=== PATIENT | male | born 1970 | race Caucasian/White ===

== ENCOUNTER 2017-05-26 10:44 | Inpatient (IN) | payer OTHER ==
[~2017-05-26] VITALS: Ht 172.7 cm; Wt 95.3 kg
[~2017-05-26 10:44] MED LIST: CIPR500T3 PO; METR1TAB66 PO; VARE1TA PO
[2017-05-26] MEDS ORDERED: ONDANSETRON 4MG/2ML VIAL (J2405) IV ONE (12:00)
[2017-05-26] MEDS ORDERED: NS 1,000 ML IV ONE (12:00)
[2017-05-26] MEDS: MORPHINE 2 MG/ML 1ML SYRINGE IV PRN ×3 (12:10→16:09)
[2017-05-26 12:24] LABS: BASO # 0.1 K/mm3 (0.0-0.2); BASO % 0.9 % (0.0-1.0); EOS # 0.3 K/mm3 (0.0-0.50); EOS % 2.7 % (0.0-3.0); LARGE UNSTAINED CELL # 0.1 K/mm3 (0.0-0.4); LARGE UNSTAINED CELL % 1.1 % (0.0-4.0); LYMPH # 0.9 K/mm3 (1.5-4.5); LYMPH % 7.4 % (24.0-44.0); MEAN CORPUSCULAR HEMOGLOBIN 32.6 pg (27.0-33.0); MEAN CORPUSCULAR HGB CONC 34.2 g/dl (32.0-36.5); MEAN CORPUSCULAR VOLUME 95.2 fl (80.0-96.0); MONO # 0.7 K/mm3 (0.0-0.8); MONO % 6.6 % (0.0-5.0); NEUTROPHILS # 8.4 K/mm3 (1.8-7.7); NEUTROPHILS % 81.3 % (36.0-66.0); PLATELET COUNT, AUTOMATED 270 k/mm3 (150-450); RED CELL DISTRIBUTION WIDTH 12.4 % (11.5-14.5); WHITE BLOOD COUNT 10.4 K/mm3 (4.0-10.0)
[2017-05-26 12:47] LABS: ALBUMIN 3.4 GM/DL (3.2-5.2); ALBUMIN/GLOBULIN RATIO 0.64 (1.00-1.93); ALKALINE PHOSPHATASE 78 U/L (45-117); ALT/SGPT 46 U/L (12-78); ANION GAP 8 MEQ/L (8-16); AST/SGOT 25 U/L (15-37); BILIRUBIN,DIRECT 0.2 MG/DL (0.0-0.2); BILIRUBIN,TOTAL 0.8 MG/DL (0.2-1.0); BLOOD UREA NITROGEN 13 MG/DL (7-18); CALCIUM LEVEL 9.5 MG/DL (8.5-10.1); CARBON DIOXIDE LEVEL 31 MEQ/L (21-32); CHLORIDE LEVEL 98 MEQ/L (98-107); CREATININE FOR GFR 0.99 MG/DL (0.70-1.30); GLOMERULAR FILTRATION RATE > 60.0 (>60); GLUCOSE, FASTING 111 MG/DL (70-105); POTASSIUM SERUM 3.8 MEQ/L (3.5-5.1); SODIUM LEVEL 137 MEQ/L (136-145); TOTAL PROTEIN 8.7 GM/DL (6.4-8.2)
[2017-05-26] MEDS ORDERED: ISOVUE-370 76% 100ML VIAL (Q9967) As Ordered ONE (13:01)
[2017-05-26] MEDS ORDERED: PIPERACILLIN/TAZOBACTAM SOD 4.5 GM in D5W MINI-BAG PLUS 50 ML IV ONE (13:45)
--- NOTE | 2017-05-26 13:47 | REP ---
Clinical: Abdominal pain with history of diverticulitis. Technique: Axial contrast enhanced images from the lung bases to the pubic symphysis using 100 ml Isovue 370 intravenous contrast material with coronal and sagittal re-formations. Comparison: 09/24/2015. Findings: Moderate amount of pneumoperitoneum is appreciated secondary to suspected ruptured sigmoid diverticulitis. Findings include mural thickening with enhancement and significant pericolonic inflammatory stranding along with scattered inflamed diverticula. Secondary inflammatory changes to the adjacent small bowel are also appreciated. Normal appendix and terminal ileum appear identified in the right lower quadrant. There is no evidence for bowel obstruction. No significant free fluid or drainable collection/abscess. Liver, spleen, pancreas, gallbladder, bilateral adrenal glands and kidneys are normal. Pelvis demonstrates normal bladder and age appropriate prostate/seminal vesicles. Reactive adenopathy secondary to the above mentioned sigmoid diverticulitis noted. No abdominal pelvic mass lesion. Abdominal aorta and vasculature appears normal. Surrounding musculoskeletal structures are intact without focal abnormality. Lung bases are clear. Visualized heart and pericardium normal. Impression: Acute perforated sigmoid diverticulitis with moderate amount of pneumoperitoneum scattered throughout the abdomen and pelvis. No associated bowel obstruction, significant free fluid or drainable collection/abscess. Secondary inflammatory changes to the adjacent small bowel noted. Signed by Lit Solano MD 05/26/2017 01:39 P
[2017-05-26] MEDS ORDERED: NS 1,000 ML IV SCH (14:30)
[2017-05-26] MEDS ORDERED: MORPHINE 2 MG/ML 1ML SYRINGE IV PRN (15:00)
[2017-05-26] MEDS ORDERED: ONDANSETRON 4MG/2ML VIAL (J2405) IV PRN (15:00)
[2017-05-26] MEDS ORDERED: ACETAMINOPHEN TAB 650MG DOSE (2X325MG) PO PRN (15:00)
[2017-05-26] MEDS ORDERED: MORPHINE 4 MG/ML 1ML SYRINGE IV PRN (15:00)
[2017-05-26] MEDS ORDERED: KETOROLAC 30 MG/ML VIAL (J1885) IV PRN (15:00)
[2017-05-26] MEDS: LR 1,000 ML IV SCH ×2 (15:28→20:25)
--- NOTE | 2017-05-26 15:52 | HPE ---
DATE OF ADMISSION: 05/26/2017 ADMISSION DIAGNOSIS: Perforated sigmoid diverticulum. HISTORY OF PRESENT ILLNESS: The patient is a pleasant 46-year-old man who presented to the emergency department at approximately 10:44 on May 26 complaining of abdominal pain. He reported that he had noted the onset of some lower abdominal fullness and discomfort on approximately Saturday, May 21. He has had an episode of diverticulitis approximately two years ago. He had a colonoscopy in September or October 2015, that identified diverticulosis involving multiple areas of the colon. He has generally done well without any recurrence of problems. He felt that he might be developing a recurrence of diverticulitis when the pain began. He initially tried to push fluids and use Tylenol as necessary. His discomfort gradually worsened over several days. He did have some nausea starting as early as May 22. He has not been eating well during this period of time. He had some dry heaves on the morning of 05/26. He noticed that the pain had become more diffuse. He reports he has had some fevers or chills overnight from 05/25 until the 05/26. He presented to the emergency department where he was evaluated. His white blood cell count was mildly elevated at 10.4 with 81% neutrophils. His chemistry profile was unremarkable. He had a CT scan of the abdomen and pelvis that revealed some limited free air primarily above the liver on the right. There was some air in the soft tissues surrounding the sigmoid colon with some obvious diverticula in the area. There was tracking of some retroperitoneal gas up to the region of the kidney and duodenum. He did not have any significant free fluid identified. Because of the evident free air consistent with a perforated sigmoid diverticulum, I was consulted. ALLERGIES: The patient denies any known drug allergies. MEDICATIONS: He has no routine medications which he takes. He uses Tylenol as needed. He did apparently have some old antibiotics in the cabinet and took some Flagyl, but this led to nausea. PAST SURGICAL HISTORY: He has had a tonsillectomy long ago. He did have a colonoscopy previously. PAST MEDICAL HISTORY: Medical history is unremarkable. He denies any heart, lung or endocrine problems. 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 He does smoke. He drinks alcohol socially. He is and accompanied to the emergency room (ER) by his spouse. FAMILY HISTORY: Really noncontributory. REVIEW OF SYSTEMS: Reveals no history of significant severe headaches, seizure or stroke. He has no history of chest pain, palpitations, shortness of breath, cough, wheezing or sputum production. He denies any endocrine problems. He has had no genitourinary issues. He has had a diagnosis of diverticulosis for several years with an episode of right-sided abdominal pain attributed to diverticulitis about two years ago. There are no bone or joint issues. He has no history of deep venous thrombosis (DVT) or pulmonary embolus. PHYSICAL EXAMINATION: Physical exam reveals a pleasant [id number] man. He is able to move with only mild obvious discomfort. He sits on the edge of the bed or stands without assistance. He is alert, oriented and cooperative. His most recent vital signs showed temperature of 98.7 with a pulse of 97, respirations of 20 and blood pressure of 137/78. Skin is warm and dry. Sclerae are anicteric. Mucous membranes are moist. Neck is supple without mass. Heart exam shows a regular rhythm without murmur. Lungs are clear to auscultation bilaterally. Abdominal exam shows a generally flat abdomen. He has bowel sounds present in all four quadrants. He has some tenderness to percussion throughout the abdomen which is fairly mild. This is most pronounced in the left lower quadrant and in the left upper quadrant. There is some tenderness to palpation as well, again primarily in the left lower quadrant and in the upper quadrants. He does not have significant rebound tenderness and there is no guarding except in the left lower quadrant. Extremities show no peripheral edema. He has palpable radial and dorsalis pedis pulses bilaterally. LABORATORY DATA: Laboratory studies show a white count of 10.4 with a hemoglobin of 16, hematocrit of 48 and platelet count of 270,000. Differential count shows 81% neutrophils, 7% lymphocytes and 7% monocytes. Chemistry profile shows a sodium of 137, potassium 3.8, chloride 98, CO2 of 31, BUN of 13, creatinine 0.99 and glucose of 111. Lactic acid is minimally elevated at 2.2. Liver function tests are normal. Total protein is 8.7 with an albumin of 3.4 and his lipase is 150. IMAGING: His CT scan imaging I reviewed personally. The radiologist report indicates acute perforated sigmoid diverticulitis with what they described as a moderate amount of pneumoperitoneum. There was no significant free fluid and no drainable abscess. On my review, he has a small amount of free air, particularly above the liver on the right with a few other small bubbles noted. He has retroperitoneal air and air in the soft tissues surrounding the sigmoid colon. He does not have any significant free fluid. IMPRESSION: Perforated sigmoid diverticulum with primarily retroperitoneal contained air with small bubbles of free air in the upper abdomen. PLAN: The patient at this point does not appear to require urgent surgical intervention. It may be that he will progress with worsening abdominal pain and developing peritonitis. I advised the patient that the usual approach for a free perforation with obvious peritonitis of the abdomen is to proceed with a laparotomy with a sigmoid colectomy and temporary end-colostomy with subsequent reconstitution of the intestinal tract in 3-6 months. I advised him that we may be able to control his current problem with antibiotics alone, without the need for surgical intervention. Certainly if his condition worsens despite the antibiotic therapy, then a surgical procedure will be required. I discussed this with the patient and his spouse at some length. He is agreeable with nonoperative management at this time and understands the risk that this will progress to a point where surgery is needed urgently. He received a dose of Zosyn in the emergency department and this will be continued. He will be kept nothing by mouth except for a few ice chips and will receive intravenous (IV) maintenance fluid. Laboratory studies will be checked again in the morning or as needed. He will be started on some subcutaneous heparin for DVT prophylaxis. GAGE
[2017-05-26 17:26] VITALS: BP 145/78
[2017-05-26] MEDS: HEPARIN SOD (PORCINE) 5000 UNITS/ML VIAL SC SCH ×2 (17:30→22:00)
[2017-05-26] MEDS: PIPERACILLIN/TAZOBACTAM SOD 3.375 GM in D5W MINI-BAG PLUS 50 ML IV SCH (20:25)
[2017-05-26 22:00] VITALS: BP 127/76
[2017-05-27] MEDS: PIPERACILLIN/TAZOBACTAM SOD 3.375 GM in D5W MINI-BAG PLUS 50 ML IV SCH ×4 (01:26→21:12)
[2017-05-27] MEDS: LR 1,000 ML IV SCH ×2 (03:50→15:02)
[2017-05-27] MEDS: HEPARIN SOD (PORCINE) 5000 UNITS/ML VIAL SC SCH ×3 (05:28→21:55)
[2017-05-27 06:00] VITALS: BP 134/81
[2017-05-27 06:02] LABS: BASO % 0.5 % (0.0-1.0); EOS # 0.3 K/mm3 (0.0-0.50); EOS % 4.2 % (0.0-3.0); LARGE UNSTAINED CELL # 0.2 K/mm3 (0.0-0.4); LARGE UNSTAINED CELL % 2.7 % (0.0-4.0); LYMPH # 0.9 K/mm3 (1.5-4.5); LYMPH % 10.9 % (24.0-44.0); MEAN CORPUSCULAR HEMOGLOBIN 32.6 pg (27.0-33.0); MEAN CORPUSCULAR HGB CONC 34.3 g/dl (32.0-36.5); MEAN CORPUSCULAR VOLUME 95.1 fl (80.0-96.0); MONO # 0.7 K/mm3 (0.0-0.8); MONO % 10.5 % (0.0-5.0); NEUTROPHILS # 4.8 K/mm3 (1.8-7.7); NEUTROPHILS % 71.2 % (36.0-66.0); PLATELET COUNT, AUTOMATED 238 k/mm3 (150-450); RED CELL DISTRIBUTION WIDTH 12.4 % (11.5-14.5); WHITE BLOOD COUNT 6.7 K/mm3 (4.0-10.0)
[2017-05-27 06:18] LABS: ANION GAP 8 MEQ/L (8-16); BLOOD UREA NITROGEN 11 MG/DL (7-18); CALCIUM LEVEL 8.7 MG/DL (8.5-10.1); CARBON DIOXIDE LEVEL 27 MEQ/L (21-32); CHLORIDE LEVEL 104 MEQ/L (98-107); CREATININE FOR GFR 0.92 MG/DL (0.70-1.30); GLOMERULAR FILTRATION RATE > 60.0 (>60); GLUCOSE, FASTING 91 MG/DL (70-105); POTASSIUM SERUM 3.8 MEQ/L (3.5-5.1); SODIUM LEVEL 139 MEQ/L (136-145)
[2017-05-27 10:00] VITALS: BP 143/81
[2017-05-27 14:00] VITALS: BP 131/60
[2017-05-27 18:00] VITALS: BP 141/83
[2017-05-27 22:00] VITALS: BP 135/92
[2017-05-28 02:00] VITALS: BP 142/85
[2017-05-28] MEDS: PIPERACILLIN/TAZOBACTAM SOD 3.375 GM in D5W MINI-BAG PLUS 50 ML IV SCH ×4 (02:22→20:35)
[2017-05-28] MEDS: HEPARIN SOD (PORCINE) 5000 UNITS/ML VIAL SC SCH ×3 (05:39→22:00)
[2017-05-28 06:00] VITALS: BP 146/88
[2017-05-28 06:53] LABS: BASO # 0.1 K/mm3 (0.0-0.2); BASO % 0.8 % (0.0-1.0); EOS # 0.2 K/mm3 (0.0-0.50); EOS % 3.1 % (0.0-3.0); LARGE UNSTAINED CELL # 0.2 K/mm3 (0.0-0.4); LARGE UNSTAINED CELL % 2.5 % (0.0-4.0); LYMPH # 1.2 K/mm3 (1.5-4.5); LYMPH % 12.9 % (24.0-44.0); MEAN CORPUSCULAR HEMOGLOBIN 32.7 pg (27.0-33.0); MEAN CORPUSCULAR HGB CONC 34.4 g/dl (32.0-36.5); MONO # 0.8 K/mm3 (0.0-0.8); MONO % 9.5 % (0.0-5.0); NEUTROPHILS # 5.6 K/mm3 (1.8-7.7); NEUTROPHILS % 71.2 % (36.0-66.0); PLATELET COUNT, AUTOMATED 281 k/mm3 (150-450); RED CELL DISTRIBUTION WIDTH 12.2 % (11.5-14.5); WHITE BLOOD COUNT 7.9 K/mm3 (4.0-10.0)
[2017-05-28 10:00] VITALS: BP 132/83
[2017-05-28] MEDS: LR 1,000 ML IV SCH (11:10)
[2017-05-28 14:00] VITALS: BP 141/83
[2017-05-28 18:00] VITALS: BP 145/84
[2017-05-28 22:00] VITALS: BP 129/81
[2017-05-29] MEDS: PIPERACILLIN/TAZOBACTAM SOD 3.375 GM in D5W MINI-BAG PLUS 50 ML IV SCH ×2 (01:32→07:53)
[2017-05-29 02:00] VITALS: BP 149/84
[2017-05-29] MEDS: HEPARIN SOD (PORCINE) 5000 UNITS/ML VIAL SC SCH (05:49)
[2017-05-29 06:00] VITALS: BP 140/89
[2017-05-29] MEDS ORDERED: CIPROFLOXACIN 500 MG TAB PO SCH (06:00)
[2017-05-29 06:50] LABS: BASO % 0.4 % (0.0-1.0); EOS # 0.3 K/mm3 (0.0-0.50); EOS % 3.1 % (0.0-3.0); LARGE UNSTAINED CELL # 0.2 K/mm3 (0.0-0.4); LARGE UNSTAINED CELL % 2.1 % (0.0-4.0); LYMPH # 1.3 K/mm3 (1.5-4.5); LYMPH % 11.8 % (24.0-44.0); MEAN CORPUSCULAR HEMOGLOBIN 31.9 pg (27.0-33.0); MEAN CORPUSCULAR HGB CONC 33.5 g/dl (32.0-36.5); MEAN CORPUSCULAR VOLUME 95.1 fl (80.0-96.0); MONO # 0.7 K/mm3 (0.0-0.8); MONO % 7.2 % (0.0-5.0); NEUTROPHILS % 75.4 % (36.0-66.0); PLATELET COUNT, AUTOMATED 299 k/mm3 (150-450); WHITE BLOOD COUNT 9.2 K/mm3 (4.0-10.0)
[2017-05-29] MEDS ORDERED: metroNIDAZOLE (FLAGYL) 500 MG TAB PO SCH (09:00)
[2017-05-29 10:00] VITALS: BP 129/79
[2017-05-29] MEDS ORDERED: FLAG500T PO (13:17)
[2017-05-29] MEDS ORDERED: CIPR-249 PO (13:17)
[2017-05-29 14:00] VITALS: BP 128/90
--- NOTE | 2017-06-14 18:55 | DSES ---
DATE OF ADMISSION: 05/26/2017 DATE OF DISCHARGE: 05/29/2017 ADMITTING DIAGNOSES: Perforated sigmoid diverticulum. HISTORY OF PRESENT ILLNESS: The patient is a pleasant 46-year-old man who presented to the emergency department at approximately 10:44 on May 26 complaining of abdominal pain. He reported that he had noted the onset of some lower abdominal fullness and discomfort on approximately Saturday, May 21. He reports that he did have an episode of diverticulitis treated medically approximately 2 years ago. He had a colonoscopy in September or October of 2015 that identified diverticulosis involving multiple areas of the colon. He has generally done well without any recurrence of problems. On May 21, he felt that he might be developing a recurrence of diverticulitis. He initially tried to push fluids and use Tylenol as necessary. His discomfort gradually worsened over several days. He did note the onset of some nausea starting as early as May 22. He has not been eating well during this period of time. He developed some dry heaves on the morning of May 26 and noticed that the pain become more diffuse. He reports that he did have some fever and chills overnight from May 25 to the . He presented to the emergency department where he was evaluated. His white blood cell count was mildly elevated at 10.4 with 81% neutrophils. His chemistry profile was unremarkable. A CT scan of the abdomen and pelvis revealed some free air as well as air in the retroperitoneal tissues and pericolic tissues of the sigmoid colon. I was consulted and he was admitted for treatment of his apparent perforated sigmoid diverticulum. HOSPITAL COURSE: The patient was admitted from the emergency department with a diagnosis of a perforated sigmoid diverticulum. He was started on piperacillin tazobactam for antibiotic coverage. He was initially kept n.p.o. except for a few ice chips. By the he felt somewhat better. He was allowed to take some clear liquids. His white blood cell count was decreased to normal. He continued with some abdominal pain and tenderness. Over the ensuing several days, his abdominal tenderness and pain diminished. His Zosyn was continued. By the , he complained only of some soreness in the left lower quadrant. Examination revealed some very mild tenderness low in the left lower quadrant and his abdomen was otherwise benign. His white blood cell count was within normal limits. He was placed on oral ciprofloxacin and Flagyl. He was on a regular diet by this point. He was discharged home on May 29, 2017. FINAL DIAGNOSIS: Perforated sigmoid diverticulum. DISPOSITION: The patient was discharged home on May 29. He was provided prescriptions for ciprofloxacin 500 mg by mouth twice daily and metronidazole 500 mg by mouth three times a day for 1 week each. He was advised against any strenuous activity. He was to continue a regular diet. He could shower as desired and follow light activity as desired. He was to remain off work for a week. He was to call the office or return to the emergency department for worsening pain, fevers or chills, or signs of worsening. He was to follow up in my office in approximately 10 days. GAGE
== END 2017-05-29 14:40 | disposition home or self-care (01) | DRG 392 ==
LOC: M ED 10:44 → M ED INP 14:56 → M MSPAV 17:11
PROVIDERS: ADMIT Surgery; ATTEND Surgery
DX: K57.20 Diverticulitis of large intestine with perforation and abscess without bleeding (principal)

== ENCOUNTER 2017-07-29 22:35 | Inpatient (IN) | payer OTHER ==
[~2017-07-29] VITALS: Ht 172.7 cm; Wt 84.1 kg
[~2017-07-29 22:35] MED LIST changes: +CIPR-249 PO; +FLAG500T PO
[2017-07-30] VITALS (9 sets, daily range): BP systolic 102–142; BP diastolic 69–92; O2SAT 98
[2017-07-30 01:15] LABS: BASO # 0.1 K/mm3 (0.0-0.2); BASO % 0.6 % (0.0-1.0); EOS # 0.4 K/mm3 (0.0-0.50); EOS % 2.6 % (0.0-3.0); LARGE UNSTAINED CELL # 0.2 K/mm3 (0.0-0.4); LYMPH # 1.5 K/mm3 (1.5-4.5); MEAN CORPUSCULAR HEMOGLOBIN 32.8 pg (27.0-33.0); MEAN CORPUSCULAR HGB CONC 35.4 g/dl (32.0-36.5); MEAN CORPUSCULAR VOLUME 92.7 fl (80.0-96.0); MONO # 0.6 K/mm3 (0.0-0.8); MONO % 4.1 % (0.0-5.0); NEUTROPHILS # 12.4 K/mm3 (1.8-7.7); NEUTROPHILS % 81.9 % (36.0-66.0); PLATELET COUNT, AUTOMATED 292 k/mm3 (150-450); RED CELL DISTRIBUTION WIDTH 12.7 % (11.5-14.5); WHITE BLOOD COUNT 15.2 K/mm3 (4.0-10.0)
[2017-07-30] MEDS ORDERED: metroNIDAZOLE 750 MG in APPROPRIATE DILUENT 1 EA IV ONE (01:30)
[2017-07-30] MEDS ORDERED: NS 1,000 ML IV ONE ×2 (01:30→03:30)
[2017-07-30] MEDS ORDERED: HYDROmorphone HCL 1 MG/ML SYRINGE (J1170) IV ONE (01:30)
[2017-07-30] MEDS ORDERED: ONDANSETRON 4MG/2ML VIAL (J2405) IV ONE (01:30)
[2017-07-30 01:34] LABS: ALBUMIN 4.2 GM/DL (3.2-5.2); ALBUMIN/GLOBULIN RATIO 1.17 (1.00-1.93); ALKALINE PHOSPHATASE 75 U/L (45-117); ALT/SGPT 39 U/L (12-78); ANION GAP 6 MEQ/L (8-16); AST/SGOT 14 U/L (15-37); BILIRUBIN,DIRECT 0.1 MG/DL (0.0-0.2); BILIRUBIN,TOTAL 0.4 MG/DL (0.2-1.0); BLOOD UREA NITROGEN 11 MG/DL (7-18); CALCIUM LEVEL 9.3 MG/DL (8.5-10.1); CARBON DIOXIDE LEVEL 30 MEQ/L (21-32); CHLORIDE LEVEL 102 MEQ/L (98-107); CREATININE FOR GFR 1.08 MG/DL (0.70-1.30); GLOMERULAR FILTRATION RATE > 60.0 (>60); GLUCOSE, FASTING 93 MG/DL (70-105); POTASSIUM SERUM 4.2 MEQ/L (3.5-5.1); SODIUM LEVEL 138 MEQ/L (136-145); TOTAL PROTEIN 7.8 GM/DL (6.4-8.2)
[2017-07-30] MEDS ORDERED: ISOVUE-370 76% 100ML VIAL (Q9967) As Ordered ONE (02:00)
--- NOTE | 2017-07-30 02:40 | REPUSA ---
CLINICAL HISTORY: Abdominal pain. TECHNIQUE: Multiple axial, sagittal and coronal CT images were obtained through the abdomen and pelvi s after administration of intravenous contrast material. COMMENTS: Diffuse thickening of the proximal small bowel loops. Associated abnormal enhancement, surrounding fat stranding with pneumatosis intestinalis. Secondary small bowel perforation and pneumoperitoneum. No major arterial occlusion is identified in the superior mesenteric, celiac and inferior mesenteric arteries. Small amount of free pelvic fluid. The liver is of uniform attenuation without mass or defect. There is no intra or extrahepatic biliary ductal dilatation. The spleen is normal. The gallbladder is within normal limits. The pancreas is of normal contour and attenuation characteristics. There is no evidence of adrenal mass. Both kidneys demonstrate prompt and equal nephrograms. The kidneys are normal in size, shape and conf iguration. There is no evidence of renal or ureteral mass. No renal or ureteral calculi are identifie d. There is no hydroureter or hydronephrosis. No evidence for appendicitis. No evidence for small or large bowel obstruction. There is no evidence of intrinsic or extrinsic bladder mass. Images of the lung bases show no evidence of pleural or parenchymal mass. There are no pleural effusi ons. The bony structures are free of lytic or blastic lesions. Multilevel degenerative changes are seen in volving the thoracolumbar spine. Scattered calcifications are seen involving the aorta and major branches compatible with atherosclero sis. IMPRESSION: Diffuse thickening of the proximal small bowel loops. Severe infectious/inflammatory versus ischemic bowel pathology. Associated abnormal enhancement, surrounding fat stranding with pneumatosis intestinalis. Secondary small bowel perforation and pneumoperitoneum. No major arterial occlusion is identified in the superior mesenteric, celiac and inferior mesenteric arteries. Small amount of free pelvic fluid. Thank you for your kind referral of this patient.
[2017-07-30] MEDS ORDERED: SUCCINYLCHOLINE 100 MG/5 ML SYRINGE (J0330) As Ordered ONE (04:10)
[2017-07-30] MEDS ORDERED: PROPOFOL 200 MG/20 ML VIAL As Ordered ONE ×2 (04:10→07:46)
[2017-07-30] MEDS ORDERED: fentaNYL 100 MCG/2 ML INJECTION (J3010) As Ordered ONE ×4 (04:10→08:43)
[2017-07-30] MEDS ORDERED: ROCURONIUM BROMIDE 50 MG/5 ML VIAL/SYRINGE As Ordered ONE ×4 (04:10→07:38)
[2017-07-30] MEDS ORDERED: LIDOCAINE 2% INJ 100 MG/5 ML SDV (FOR ANES.) As Ordered ONE ×2 (04:10→09:37)
[2017-07-30] MEDS ORDERED: MIDAZOLAM INJ 2 MG/2 ML VIAL (J2250) As Ordered ONE (04:11)
[2017-07-30] MEDS ORDERED: TYLE500T78 PO (04:17)
[2017-07-30] MEDS ORDERED: TUMS500C PO (04:17)
[2017-07-30] MEDS ORDERED: BUPIVACAINE HCL 0.25% 30 ML VIAL As Ordered ONE (05:13)
[2017-07-30] MEDS ORDERED: cefoTEtan DISODIUM 2 GM in D5W MINI-BAG PLUS 100 ML IV ONE (06:00)
[2017-07-30] MEDS ORDERED: MORPHINE 10 MG/ML 1ML VIAL As Ordered ONE ×3 (06:53→09:23)
[2017-07-30] MEDS ORDERED: ONDANSETRON 4MG/2ML VIAL (J2405) As Ordered ONE (07:02)
[2017-07-30] MEDS ORDERED: GLYCOPYRROLATE INJ 0.2 MG/ML 2 ML VIAL As Ordered ONE (07:38)
[2017-07-30] MEDS ORDERED: NEOSTIGMINE 1MG/ML 5 ML SYRINGE (J2710) As Ordered ONE (07:38)
[2017-07-30] MEDS ORDERED: KETOROLAC 60 MG/2 ML VIAL (J1885) As Ordered ONE (07:38)
[2017-07-30] MEDS ORDERED: HYDROmorphone HCL 2 MG/ML 1ML VIAL (J1170) As Ordered ONE (08:12)
[2017-07-30] MEDS: fentaNYL 100 MCG/2 ML INJECTION (J3010) IV PRN ×4 (08:44→09:00)
[2017-07-30] MEDS ORDERED: MORPHINE 4 MG/ML 1ML SYRINGE IV PRN (08:45)
[2017-07-30] MEDS ORDERED: ACETAMINOPHEN TAB 650MG DOSE (2X325MG) PO PRN (08:45)
[2017-07-30] MEDS ORDERED: ONDANSETRON 4MG/2ML VIAL (J2405) IV PRN ×2 (08:45→09:00)
[2017-07-30] MEDS ORDERED: LR 1,000 ML IV SCH (09:00)
[2017-07-30] MEDS: MORPHINE 2 MG/ML 1ML SYRINGE IV PRN ×5 (09:04→09:24)
[2017-07-30] MEDS ORDERED: HYDROmorphone HCL 1 MG/ML SYRINGE (J1170) As Ordered ONE ×2 (09:41→10:05)
[2017-07-30] MEDS: HYDROmorphone HCL 1 MG/ML SYRINGE (J1170) IV PRN ×2 (09:42→09:47)
[2017-07-30] MEDS: LR 1,000 ML IV SCH ×3 (10:48→20:23)
[2017-07-30] MEDS: PANTOPRAZOLE 40MG INJ (PROTONIX) (C9113) IV SCH (11:24)
[2017-07-30] MEDS: SENOKOT S TAB PO SCH ×2 (11:24→19:48)
[2017-07-30] MEDS: ERTAPENEM SODIUM 1 GM in NS MINI-BAG PLUS 50 ML IV SCH (11:24)
[2017-07-30] MEDS: NORCO, ANEXSIA 5/325MG TABLET (HYDROcodone/ACETAMINOPHEN) PO PRN ×2 (11:25→19:49)
[2017-07-30] MEDS: HEPARIN SOD (PORCINE) 5000 UNITS/ML VIAL SC SCH ×2 (14:12→20:23)
[2017-07-30] MEDS: KETOROLAC 30 MG/ML VIAL (J1885) IV PRN (16:39)
--- NOTE | 2017-07-30 17:07 | HPE ---
DATE OF ADMISSION: 07/30/2017 CHIEF COMPLAINT: Abdominal pain. HISTORY OF PRESENT ILLNESS: The patient is a 46-year-old male who was recently in the hospital about a month ago with Dr. Prado, admitted for perforated diverticulitis. He was discharged home; however, for the past month he has had this persistent lower abdominal pain. Last evening he went out, had a few drinks, went home, and went to bed. As soon as he got home the pain got worse suddenly with most of the pain in epigastric area at first, and then now it is more toward the lower abdomen. This pain has been increasing in intensity, so he came into the emergency room for evaluation. In the emergency room (ER) he was afebrile. Vital signs were all stable. He had a slightly elevated white count at 15.2 with an abnormal of the CT scan that showed that there was likely a perforated small bowel with some pneumatosis intestinalis and free air inside the abdomen. Because of this I was called to evaluate. On exam the patient is extremely tender. He denies any fevers or chills. No nausea, vomiting, or diarrhea. No change in bowel movements, just this sudden increase in the pain. He does have history of acid reflux and heartburn, and he was out drinking a lot of alcohol last evening. No other significant risk factors for any type of peptic ulcer disease and no previous abdominal surgeries. I did speak with the radiologist on the phone, who reviewed the film with me directly and believes that the perforation is likely in the proximal ileum and down toward the pelvis with some slightly dilated loops of bowel in that vicinity. No signs of any injury in the proximal small bowel. PAST MEDICAL HISTORY: 1. Gastroesophageal reflux disease (GERD). 2. Tobacco usage. PAST SURGICAL HISTORY: Tonsils. ALLERGIES: None. HOME MEDICATIONS: Tums as needed and Tylenol as needed. SOCIAL HISTORY: Smokes about a pack a day. Drinks socially. Denies any drug abuse. FAMILY HISTORY: Noncontributory. REVIEW OF SYSTEMS: Pertinent positives and negatives as stated in the history of present illness (HPI). PHYSICAL EXAMINATION: GENERAL: Patient is alert and oriented times three in no acute distress. VITAL SIGNS: Temperature 97.8, pulse 95, respirations 16, blood pressure 153/91, pulse oximetry 96% on room air. HEENT: Pupils equally round and react to light and accommodation. HEART: S1, S2, regular rate and rhythm. LUNGS: Clear to auscultation bilaterally. ABDOMEN: Soft, tender palpation diffusely, slight rebound tenderness in left lower quadrant associated with guarding. EXTREMITIES: No clubbing, cyanosis, or edema. LABORATORY DATA: White count 15.2, hemoglobin 18.2, platelets 292. Sodium 138, potassium 4.2, creatinine 1.08. IMAGING STUDIES: CT abdomen and pelvis shows diffuse thickening of proximal small bowel loops, severe infectious, inflammatory versus ischemic bowel pathology, associated abnormal enhancement surrounding fat stranding with pneumatosis intestinalis secondary to small-bowel perforation and pneumoperitoneum. No major arterial occlusion identified in the superior mesenteric artery (SMA), celiac, and inferior mesenteric arteries (IMAs). Small amount of free pelvic fluid. ASSESSMENT AND PLAN: The patient 46-year-old male with history of diverticulitis that was perforated about a month ago, now presents with increasing abdominal pain and an inflammatory process with likely a perforated small bowel in the left lower quadrant. This likely is associated with the diverticulitis. Recommendation at this time is to proceed with diagnostic laparoscopy, possible laparotomy with resection of small bowel, possible large bowel. Risks and benefits of procedure were discussed in detail with the patient. Informed consent was obtained, and patient was brought back to the operating room emergently. Postoperatively he will be kept in the hospital until he is tolerating diet and having normal bowel movements, and he will be kept on intravenous (IV) fluids and antibiotics and during his stay.
[2017-07-31] VITALS (7 sets, daily range): BP systolic 109–167; BP diastolic 60–91; O2SAT 97
[2017-07-31] MEDS: NORCO, ANEXSIA 5/325MG TABLET (HYDROcodone/ACETAMINOPHEN) PO PRN ×2 (02:24→19:29)
[2017-07-31] MEDS: LR 1,000 ML IV SCH ×3 (04:39→19:29)
[2017-07-31] MEDS: HEPARIN SOD (PORCINE) 5000 UNITS/ML VIAL SC SCH ×4 (05:00→22:00)
[2017-07-31] MEDS: KETOROLAC 30 MG/ML VIAL (J1885) IV PRN ×2 (06:36→14:07)
[2017-07-31 07:05] LABS: MEAN CORPUSCULAR HEMOGLOBIN 31.9 pg (27.0-33.0); MEAN CORPUSCULAR HGB CONC 34.7 g/dl (32.0-36.5); RED CELL DISTRIBUTION WIDTH 12.7 % (11.5-14.5); WHITE BLOOD COUNT 10.8 K/mm3 (4.0-10.0)
[2017-07-31 07:32] LABS: ANION GAP 4 MEQ/L (8-16); BLOOD UREA NITROGEN 10 MG/DL (7-18); CALCIUM LEVEL 7.9 MG/DL (8.5-10.1); CARBON DIOXIDE LEVEL 34 MEQ/L (21-32); CHLORIDE LEVEL 103 MEQ/L (98-107); CREATININE FOR GFR 0.86 MG/DL (0.70-1.30); GLOMERULAR FILTRATION RATE > 60.0 (>60); GLUCOSE, FASTING 108 MG/DL (70-105); MAGNESIUM LEVEL 1.9 MG/DL (1.8-2.4); POTASSIUM SERUM 4.3 MEQ/L (3.5-5.1); SODIUM LEVEL 141 MEQ/L (136-145)
--- NOTE | 2017-07-31 07:37 | RO ---
DATE OF PROCEDURE: 07/30/2017 PREOPERATIVE DIAGNOSIS: Perforated small bowel. 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 PROCEDURE: Diagnostic converted to exploratory laparotomy with takedown of enterocolonic fistula with small bowel resection and primary anastomosis, followed by sigmoid resection with distal Anup's pouch and colostomy. SURGEON: Mervin Ruiz DO SUBSTATION ENGINEER: Joby Art MD ANESTHESIA: General: ESTIMATED BLOOD LOSS (EBL): 100. COMPLICATIONS: None. INDICATION FOR PROCEDURE: The patient is a 46-year-old male who presents with increasing abdominal pain and CT findings associated with a perforated bowel and free air inside the abdomen. Recommendation to proceed with diagnostic possible open exploratory laparotomy. Risks, benefits of procedure not limited but including bleeding, infection, hernia formation, damage to surrounding structures, anastomotic leak and need for further surgery were discussed in detail with the patient and the patient's . Informed consent was obtained and procedure was planned. DESCRIPTION OF PROCEDURE: Patient brought back to operating room #3. After sufficient sedation, the abdomen was sterilely prepped and draped. Nasogastric tube was placed as well as a Parisi. Time-out was done to firm proper patient, proper procedure. Following that a 5 mm incision made in the left upper quadrant. Veress needle was inserted and the abdomen was insufflated with 50 mmHg. The Veress needle was removed and a 5 mm Optiview port was used to gain access to the abdomen. Once the abdomen was entered, another 5 mm port was placed infraumbilically in the midline, followed by another 5 mm port in the right lower quadrant. The omentum was elevated up towards the transverse colon. It was densely adhered in the left lower quadrant and was unable to be mobilized very easily. Because of this the plan was to open. Following that an infraumbilical incision was created using a scalpel. Incision was carried down through the fascia inside the abdomen using electrocautery. Once the abdomen was entered, the omentum was able to be teased away from the inflammatory process of left lower quadrant and mobilized up towards the superior peritoneal cavity. A large mass of small bowel in the left lower quadrant was densely adhered to the sigmoid colon. This was able to be easily teased apart using blunt dissection. Upon doing so it revealed that there was an enterocolonic fistula with the opening into the sigmoid colon as well as into a loop of small bowel. The small bowel was then mobilized away. The sigmoid colon was mobilized laterally and medially using electrocautery. All the adhesions were taken down off the lateral abdominal wall. Peritoneal reflections were taken down using electrocautery until the bowel was easily mobilized. Once immobilization was complete, the rectosigmoid junction was stapled using a contour stapler. The mesentery of the sigmoid colon was then taken down using the LigaSure Max until enough mobilization was achieved to be able to bring out a colostomy. Once that was completed, the small bowel resection was done. A section of small bowel, approximately 25 cm in length, had two small perforations in the it. The bowel was brought back together in a [id number]-si-ibsh anastomosis using a MIGUELIAN 100 stapler. Once that was completed, the mesentery between these two points was taken down using the LigaSure. Once the area was all removed, the small bowel mesentery was reapproximated using a running #0 Vicryl suture. The staple lines of the anastomosis were oversewn with interrupted Lembert sutures covered by a layer of Tisseel. This small bowel was then placed back inside of the pelvis and a 19-Uzbek Javier drain was placed next to it and brought out through a right lower quadrant port site. Circular incision made in the left midabdomen. The skin, subcutaneous tissue was excised in this area. Cruciate incision was then made in the anterior and posterior layers of the fascia and the muscle fibers in the middle were just bluntly in between. The sigmoid colon was brought out through this incision out through the abdominal wall. It was then left in place. The abdomen was then washed out using warm saline. Midline incision was closed with two looped running PDS sutures tied them. Skin was approximated using hodan. Drains, stitch was placed. The large intestine was transected about 2 cm above the skin level. Melissa colostomy was then created using #3-0 Vicryl sutures. Once this was completed, the anastomosis was done. The abdomen was washed and dried. 4 x 4's and tape and an ostomy appliance were placed, thus ending procedure. GAGE
[2017-07-31] MEDS: SENOKOT S TAB PO SCH ×2 (09:45→19:29)
[2017-07-31] MEDS: PANTOPRAZOLE 40MG INJ (PROTONIX) (C9113) IV SCH (09:45)
[2017-07-31] MEDS: ERTAPENEM SODIUM 1 GM in NS MINI-BAG PLUS 50 ML IV SCH (09:45)
[2017-08-01] MEDS: LR 1,000 ML IV SCH ×2 (00:39→07:38)
[2017-08-01] MEDS: HEPARIN SOD (PORCINE) 5000 UNITS/ML VIAL SC SCH ×3 (05:09→20:13)
[2017-08-01 06:00] VITALS: BP 155/88
[2017-08-01 07:09] LABS: MEAN CORPUSCULAR HEMOGLOBIN 31.4 pg (27.0-33.0); MEAN CORPUSCULAR HGB CONC 33.9 g/dl (32.0-36.5); MEAN CORPUSCULAR VOLUME 92.7 fl (80.0-96.0); RED CELL DISTRIBUTION WIDTH 12.7 % (11.5-14.5); WHITE BLOOD COUNT 10.7 K/mm3 (4.0-10.0)
[2017-08-01 07:30] LABS: ANION GAP 5 MEQ/L (8-16); BLOOD UREA NITROGEN 5 MG/DL (7-18); CALCIUM LEVEL 8.8 MG/DL (8.5-10.1); CARBON DIOXIDE LEVEL 31 MEQ/L (21-32); CHLORIDE LEVEL 104 MEQ/L (98-107); CREATININE FOR GFR 0.68 MG/DL (0.70-1.30); GLOMERULAR FILTRATION RATE > 60.0 (>60); GLUCOSE, FASTING 99 MG/DL (70-105); MAGNESIUM LEVEL 1.9 MG/DL (1.8-2.4); POTASSIUM SERUM 3.9 MEQ/L (3.5-5.1); SODIUM LEVEL 140 MEQ/L (136-145)
[2017-08-01] MEDS: PANTOPRAZOLE 40MG INJ (PROTONIX) (C9113) IV SCH (08:54)
[2017-08-01] MEDS: SENOKOT S TAB PO SCH ×2 (08:54→20:09)
[2017-08-01] MEDS: ERTAPENEM SODIUM 1 GM in NS MINI-BAG PLUS 50 ML IV SCH (08:55)
[2017-08-01] MEDS: NORCO, ANEXSIA 5/325MG TABLET (HYDROcodone/ACETAMINOPHEN) PO PRN ×2 (08:55→20:10)
[2017-08-01] MEDS ORDERED: diphenhydrAMINE INJ 50MG/ML VIAL (J1200) IV PRN (10:45)
[2017-08-01] MEDS: KCL 10MEQ IN D5/0.45NS 1000ML 1,000 ML IV SCH (12:21)
[2017-08-01 14:00] VITALS: BP 19/65
[2017-08-01] MEDS: KETOROLAC 30 MG/ML VIAL (J1885) IV PRN (20:12)
[2017-08-01 21:00] VITALS: O2SAT 97
[2017-08-01 22:00] VITALS: BP 147/87
[2017-08-02] MEDS: KCL 10MEQ IN D5/0.45NS 1000ML 1,000 ML IV SCH (00:48)
[2017-08-02] MEDS: HEPARIN SOD (PORCINE) 5000 UNITS/ML VIAL SC SCH ×4 (05:01→21:59)
[2017-08-02 06:00] VITALS: BP 145/63
[2017-08-02 07:29] LABS: MEAN CORPUSCULAR HEMOGLOBIN 31.8 pg (27.0-33.0); MEAN CORPUSCULAR HGB CONC 34.2 g/dl (32.0-36.5); MEAN CORPUSCULAR VOLUME 92.9 fl (80.0-96.0); RED CELL DISTRIBUTION WIDTH 12.6 % (11.5-14.5); WHITE BLOOD COUNT 6.4 K/mm3 (4.0-10.0)
[2017-08-02 07:44] LABS: ANION GAP 2 MEQ/L (8-16); BLOOD UREA NITROGEN 5 MG/DL (7-18); CALCIUM LEVEL 8.4 MG/DL (8.5-10.1); CARBON DIOXIDE LEVEL 31 MEQ/L (21-32); CHLORIDE LEVEL 104 MEQ/L (98-107); CREATININE FOR GFR 0.75 MG/DL (0.70-1.30); GLOMERULAR FILTRATION RATE > 60.0 (>60); GLUCOSE, FASTING 100 MG/DL (70-105); POTASSIUM SERUM 3.9 MEQ/L (3.5-5.1); SODIUM LEVEL 137 MEQ/L (136-145)
[2017-08-02] MEDS: SENOKOT S TAB PO SCH ×2 (09:01→21:56)
[2017-08-02] MEDS: ERTAPENEM SODIUM 1 GM in NS MINI-BAG PLUS 50 ML IV SCH (09:01)
[2017-08-02] MEDS: PANTOPRAZOLE 40MG INJ (PROTONIX) (C9113) IV SCH (09:01)
[2017-08-02] MEDS: KETOROLAC 30 MG/ML VIAL (J1885) IV PRN (09:50)
[2017-08-02 14:00] VITALS: BP 138/85
[2017-08-02] MEDS: NORCO, ANEXSIA 5/325MG TABLET (HYDROcodone/ACETAMINOPHEN) PO PRN (21:55)
[2017-08-02 22:00] VITALS: BP 144/89
[2017-08-03 06:00] VITALS: BP 136/83
[2017-08-03] MEDS: HEPARIN SOD (PORCINE) 5000 UNITS/ML VIAL SC SCH (06:00)
[2017-08-03 07:24] LABS: ANION GAP 9 MEQ/L (8-16); BLOOD UREA NITROGEN 7 MG/DL (7-18); CALCIUM LEVEL 8.2 MG/DL (8.5-10.1); CARBON DIOXIDE LEVEL 27 MEQ/L (21-32); CHLORIDE LEVEL 105 MEQ/L (98-107); CREATININE FOR GFR 0.75 MG/DL (0.70-1.30); GLOMERULAR FILTRATION RATE > 60.0 (>60); GLUCOSE, FASTING 91 MG/DL (70-105); SODIUM LEVEL 141 MEQ/L (136-145)
[2017-08-03 07:30] LABS: MEAN CORPUSCULAR HEMOGLOBIN 31.7 pg (27.0-33.0); MEAN CORPUSCULAR HGB CONC 34.4 g/dl (32.0-36.5); MEAN CORPUSCULAR VOLUME 92.1 fl (80.0-96.0); RED CELL DISTRIBUTION WIDTH 12.7 % (11.5-14.5); WHITE BLOOD COUNT 6.6 K/mm3 (4.0-10.0)
[2017-08-03] MEDS: SENOKOT S TAB PO SCH (08:10)
[2017-08-03] MEDS: PANTOPRAZOLE 40MG INJ (PROTONIX) (C9113) IV SCH (08:10)
[2017-08-03] MEDS: NORCO, ANEXSIA 5/325MG TABLET (HYDROcodone/ACETAMINOPHEN) PO PRN (08:11)
[2017-08-03] MEDS ORDERED: FLAG500T PO (10:37)
[2017-08-03] MEDS ORDERED: CIPR500T3 PO (10:37)
[2017-08-03] MEDS ORDERED: NORCOTAB PO (10:37)
--- NOTE | 2017-08-06 15:08 | DSES ---
DATE OF ADMISSION: 07/30/2017 DATE OF DISCHARGE: 08/03/2017 ADMISSION DIAGNOSIS: Perforated viscus. 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 HOSPITAL COURSE: Patient is a 46-year-old male who presented to emergency room on the with complaints of abdominal pain. He had CAT scan done, which showed free air in the abdomen, as well as a lot of inflammation and some loops of the small bowel suspicious for perforated bowel. Due to recent history of perforated diverticulitis about a month prior to that, plan was to take him to the operating room for exploration. He was brought up to the operating room and diagnostic laparoscopy was performed as due to the suspicion for a small bowel perforation. However, once inside the small bowel was all adhered to the sigmoid colon so the plan was to open. This was then converted over to exploratory laparotomy. He had multiple loops of small bowel adhered to the sigmoid colon, one of which had fistulized to the sigmoid colon and also have free perforation inside the abdomen. He underwent a small bowel resection, as well as a sigmoid resection with Anup's pouch and end colostomy. He tolerated the procedure well and was sent back to the floor in stable condition. Postoperatively, his pain was improved. His nasogastric tube was removed along with a Parisi. On postop day #1, he was ambulating well, using his incentive spirometer had good urine output and his labs continued to improve. He then was slowly started on diet and by the morning of the , he had large volumes out of his ostomy. Javier drain was serosanguineous so the drain was removed and he was discharged home. PLAN: Followup with me in the office in 2 weeks. Plan on followup visit 3 months after that to schedule colostomy reversal. Call the office with any questions. No lifting more than 20 pounds.
== END 2017-08-03 11:55 | disposition home or self-care (01) | DRG 329 ==
LOC: M ED 22:35 → M SDC 07-30 04:25 → M MS5PR 07-30 08:39
PROVIDERS: ADMIT Surgery; ATTEND Surgery
PROC: 0DBN0ZZ Excision of Sigmoid Colon, Open Approach (ICD-10-PCS; 2017-07-30)
PROC: 0DB80ZZ Excision of Small Intestine, Open Approach (ICD-10-PCS; 2017-07-30)
PROC: 0DNE0ZZ Release Large Intestine, Open Approach (ICD-10-PCS; 2017-07-30)
PROC: 0DN80ZZ Release Small Intestine, Open Approach (ICD-10-PCS; 2017-07-30)
PROC: 0D1N0Z4 Bypass Sigmoid Colon to Cutaneous, Open Approach (ICD-10-PCS; principal; 2017-07-30 03:42)
DX: K63.2 Fistula of intestine (principal); K63.1 Perforation of intestine (nontraumatic); K21.9 Gastro-esophageal reflux disease without esophagitis; F17.210 Nicotine dependence, cigarettes, uncomplicated; Z53.31 Laparoscopic surgical procedure converted to open procedure

== ENCOUNTER 2017-08-19 01:37 | Inpatient (IN) | payer OTHER ==
[~2017-08-19] VITALS: Ht 172.7 cm; Wt 77.4 kg
[~2017-08-19 01:37] MED LIST changes: +NORCOTAB PO; +TUMS500C PO; +TYLE500T78 PO
[2017-08-19 02:12] LABS: BASO # 0.1 10^3/uL (0.0-0.2); BASO % 0.6 % (0.0-1.0); EOS # 0.1 10^3/uL (0.0-0.50); IMMATURE GRANULOCYTE % 0.6 % (0-0); LYMPH # 2.4 10^3/uL (1.5-4.5); MEAN CORPUSCULAR HEMOGLOBIN 30.7 pg (27.0-33.0); MEAN CORPUSCULAR HGB CONC 33.8 g/dl (32.0-36.5); MEAN CORPUSCULAR VOLUME 90.6 fl (80.0-96.0); MONO # 1.5 10^3/uL (0.0-0.8); MONO % 10.7 % (0.0-5.0); NEUTROPHILS # 9.4 10^3/uL (1.8-7.7); NEUTROPHILS % 69.1 % (36.0-66.0); PLATELET COUNT, AUTOMATED 343 10^3/uL (150-450); WHITE BLOOD COUNT 13.5 10^3/uL (4.0-10.0)
[2017-08-19 02:13] LABS: VENOUS BASE EXCESS -0.8 (-2.0-2.0); VENOUS O2 SATURATION 38.9 % (60.0-80.0); VENOUS PARTIAL PRESSURE CO2 63.1 mmHg (38.0-50.0); VENOUS PARTIAL PRESSURE O2 25.4 mmHg (30.0-50.0); VENOUS STANDARD HCO3 22.3 MEQ/L; VENOUS TOTAL CO2 29.9 MEQ/L (24.0-28.0)
[2017-08-19] MEDS: MORPHINE 4 MG/ML 1ML SYRINGE IV PRN ×2 (02:13→03:11)
[2017-08-19] MEDS ORDERED: ONDANSETRON 4MG/2ML VIAL (J2405) IV ONE (02:15)
[2017-08-19 02:31] LABS: ALBUMIN 3.8 GM/DL (3.2-5.2); ALBUMIN/GLOBULIN RATIO 0.88 (1.00-1.93); ALKALINE PHOSPHATASE 66 U/L (45-117); ALT/SGPT 32 U/L (12-78); ANION GAP 5 MEQ/L (8-16); AST/SGOT 7 U/L (15-37); BILIRUBIN,DIRECT 0.2 MG/DL (0.0-0.2); BILIRUBIN,TOTAL 0.9 MG/DL (0.2-1.0); BLOOD UREA NITROGEN 13 MG/DL (7-18); CALCIUM LEVEL 9.3 MG/DL (8.5-10.1); CARBON DIOXIDE LEVEL 32 MEQ/L (21-32); CHLORIDE LEVEL 100 MEQ/L (98-107); CREATININE FOR GFR 1.05 MG/DL (0.70-1.30); GLOMERULAR FILTRATION RATE > 60.0 (>60); GLUCOSE, FASTING 121 MG/DL (70-105); POTASSIUM SERUM 3.9 MEQ/L (3.5-5.1); SODIUM LEVEL 137 MEQ/L (136-145); TOTAL PROTEIN 8.1 GM/DL (6.4-8.2)
[2017-08-19] MEDS ORDERED: ISOVUE-370 76% 100ML VIAL (Q9967) As Ordered ONE (02:48)
--- NOTE | 2017-08-19 03:30 | REPUSA ---
CLINICAL HISTORY: Abdominal pain. TECHNIQUE: Multiple axial, sagittal and coronal CT images were obtained through the abdomen and pelvi s after administration of intravenous contrast material. COMMENTS: Comparison is made to the prior exam performed on 07/28/2017. Mild proximal small bowel lower thickening. Surgical changes of the bowels. Unremarkable left lower quadrant colostomy. Mild thickening of the under distended rectosigmoid colon. Mild prostatomegaly. Fat containing left inguinal hernia without incarceration. The liver is mildly enlarged decreased attenuation without mass or defect. There is no intra or extra hepatic biliary ductal dilatation. The spleen is normal. The gallbladder is within normal limits. The pancreas is of normal contour and attenuation characteristics. There is no evidence of adrenal mass. Both kidneys demonstrate prompt and equal nephrograms. The kidneys are normal in size, shape and conf iguration. There is no evidence of renal or ureteral mass. No renal or ureteral calculi are identifie d. There is no hydroureter or hydronephrosis. No evidence for small or large bowel obstruction. There is no evidence of abdominal ascites or lympha denopathy. There is no evidence of intrinsic or extrinsic bladder mass. There is no pelvic ascites or lymphadeno yecenia. Images of the lung bases show no evidence of pleural or parenchymal mass. There are no pleural effusi ons. Ground glass densities in the right lower lobe. The bony structures are free of lytic or blastic lesions. Calcified splenic granulomas. IMPRESSION: Groundglass densities in the right lower lobe. Pneumonitis is suspected. Surgical changes of the small bowels. Unremarkable left lower quadrant colostomy. Mild prostatomegaly. Fat containing left inguinal hernia without incarceration. Apparent thickening of the under distended rectosigmoid colon. Thank you for your kind referral of this patient.
--- NOTE | 2017-08-19 03:40 | REPUSA ---
CLINICAL HISTORY: Chest pain, exclude PE. TECHNIQUE: Multiple incremental axial, coronal and oblique images are obtained from the thoracic inle t to the upper abdomen. Intravenous contrast material was administered as per pulmonary embolism prot ocol. COMMENTS: Bilateral lower lobe segmental branches pulmonary emboli. Findings prominent in the right lower lobe. Associated subpleural airspace disease suggestive of developing pulmonary infarctions. There is bilateral peribronchial interstitial thickening suggestive of bronchitis. There is excellent opacification of the remaining pulmonary arterial system without evidence for cent ral pulmonary embolism. Aorta is of normal caliber without evidence for dissection or aneurysm. There is no evidence of pleural or parenchymal mass. There are no pleural effusions. There is no evid ence of hilar or mediastinal lymphadenopathy. The heart and great vessels are within normal limits. Images of the upper abdomen demonstrate no evidence of adrenal mass. The bony structures are free of lytic or blastic lesions. IMPRESSION: Bilateral lower lobe segmental branches pulmonary emboli. Associated multifocal subpleural airspace disease more prominent in the right lower lobe. Findings ar e suggestive of developing pulmonary infarction. Thank you for your kind referral of this patient.
[2017-08-19 03:42] LABS: ABG HCO3 25.8 MEQ/L (22.0-26.0); ABG PARTIAL PRESSURE CO2 41.4 mmHg (35.0-45.0); ABG PARTIAL PRESSURE O2 78.2 mmHg (75.0-100.0); ABG STANDARD HCO3 25.4 MEQ/L (22.0-26.0); ABG pH (ARTERIAL) 7.412 UNITS (7.350-7.450)
[2017-08-19] MEDS ORDERED: ACETAMINOPHEN 500 MG TAB PO PRN (04:45)
[2017-08-19] MEDS ORDERED: CALCIUM CARBONATE 500 MG CHEW U/D PO PRN (04:45)
[2017-08-19] MEDS ORDERED: ONDANSETRON 4MG/2ML VIAL (J2405) IV PRN (04:45)
--- NOTE | 2017-08-19 05:20 | REPUSA ---
CLINICAL HISTORY: Edema. COMMENTS: Real time sonography with duplex doppler of the extremities bilaterally was performed with attention to the major deep venous structures. Evaluation reveals the common femoral, superficial femoral and popliteal veins bilaterally to be comp letely compressible without intraluminal thrombus. There is normal spontaneous phasic flow and augmen tation in all deep veins. The greater saphenous/common femoral vein junctions are patent bilaterally. IMPRESSION: No evidence of DVT in the lower extremities bilaterally. Thank you for your kind referral of this patient.
--- NOTE | 2017-08-19 05:33 | IPNPDOC ---
Text Note Date of Service The patient was seen on 08/19/17. NOTE d/w Dr Mack, general surgery, given recent surgery, agree with anticoagulation heparin drip bridge to Coumadin. Will consult as needed VS,Reji, I+O VSReji, I+O Laboratory Tests 08/19/17 01:55 Red Blood Count 5.02, Mean Corpuscular Volume 90.6, Mean Corpuscular Hemoglobin 30.7, Mean Corpuscular Hemoglobin Concent 33.8, Red Cell Distribution Width 13.0 , Neutrophils (%) (Auto) 69.1 H, Lymphocytes (%) (Auto) 18.0 L, Monocytes (%) ( Auto) 10.7 H, Eosinophils (%) (Auto) 1.0, Basophils (%) (Auto) 0.6, Neutrophils # (Auto) 9.4 H, Lymphocytes # (Auto) 2.4, Monocytes # (Auto) 1.5 H, Eosinophils # (Auto) 0.1, Basophils # (Auto) 0.1 Vital Signs Date Time Temp Pulse Resp B/P (MAP) Pulse Ox O2 Delivery O2 Flow Rate FiO2 08/19/17 03:28 20 08/19/17 01:55 08/19/17 01:44 98.8 110 97 Room Air JAMES COLLAZO MD Aug 19, 2017 05:33
[2017-08-19 05:35] LABS: INR 0.96
[2017-08-19] MEDS: MORPHINE 2 MG/ML 1ML SYRINGE IV PRN ×4 (06:16→21:00)
[2017-08-19] MEDS: HEPARIN DRIP 25,000 UNITS in APPROPRIATE DILUENT 1 EA IV SCH ×2 (06:22→22:50)
[2017-08-19 06:31] VITALS: BP 132/79
[2017-08-19] MEDS: PERCOCET 5MG/325MG TAB PO PRN ×4 (06:37→18:22)
--- NOTE | 2017-08-19 06:37 | HPE ---
DATE OF ADMISSION: 08/19/2017 PRIMARY CARE PROVIDER: None. The patient will prefer to see Dr. Akila Durand as the patient's sees Dr. Akila Durand. GENERAL SURGEON: Dr. Ruiz CHIEF COMPLAINT: Right-sided back pain and shortness of breath. HISTORY OF PRESENT ILLNESS: This is a 46-year-old male patient with underlying medical history of smoking, gastroesophageal reflux disease (GERD), recently had a colonic perforation secondary to diverticulosis, status post sigmoid colon resection with colostomy by Dr. Mervin Ruiz. Surgery done on 07/31/2017. The patient subsequently returned home. Presented with 1 day history of right-sided back pain that is progressively worsening, constant and sharp, worsened with breathing and movement and lying back down, about 6/10 with no relieving factor, associated with shortness of breath. Denies any diaphoresis, chest pain, pressure or discomfort. Denies any abdominal pain, making normal bowel movement. No change in urination, fever, chills, coughing. Denies any lower extremity swelling. No sick contact. No recent travel. ALLERGIES: NO KNOWN DRUG ALLERGIES. PAST MEDICAL HISTORY: 1. Recently perforated diverticulum with sigmoid colon resection and colostomy, scheduled reversal in the next 2-3 months. 2. GERD. 3. Smoking. PAST SURGICAL HISTORY: 1. Tonsillectomy. 2. Sigmoid resection with colostomy. SOCIAL HISTORY: Smokes 1 pack per day for the past 25 years. Drinking about 4 beers per week. Denies any other drug use. FAMILY HISTORY: Father with myocardial infarction ([place]) at age 61. Paternal grandparents with coronary artery disease. REVIEW OF SYSTEMS: Negative other back pain and shortness of breath. HOME MEDICATION: - Tums 1500 mg by mouth every 6 hours as needed - acetaminophen 1000 mg by mouth every 6 hours as needed PHYSICAL EXAMINATION: Vital signs: Temperature 98.8. Pulse 110. Respiration 20. Blood pressure 132/77. Pulse oximetry 97% on room air. General: Patient alert, oriented times three, in no acute distress. HEENT: Normocephalic, atraumatic. Pulmonary: Diminished breath sound bilateral base. Mild tenderness to palpation right lower quadrant. Cardiac: Mild tachycardia, regular, S1, S2. Abdomen: Colostomy in place, clean, dry, intact. Hypoactive bowel sound. Nontender. Extremities: No clubbing, cyanosis or edema. CT SCAN: CT of the abdomen shows rhonchi density of right lower lobe, pneumonitis is suspected. Surgical changes of small bowel. CT angiography: Bilateral low segment total branch of pulmonary embolism (PE) associated with multifocal pleural airspace disease more prominent at the right lower lobe suggestive of pulmonary infarct. LABORATORY: WBC 13.5, hemoglobin and hematocrit 15.4/45.5, platelets 342. Chemistry: Sodium 137, potassium 3.9, chloride 100, bicarbonate 32, BUN 13, creatinine 1.05. Lactic acid 1.7. Cardiac enzymes negative times one. EKG: Sinus rhythm at 99. No ST-T segment changes. ASSESSMENT AND PLAN: This is a 46-year-old male patient with underlying medical history of gastroesophageal reflux disease, smoking, as well as recently diverticulum perforation with sigmoid resection and colostomy, admitted to the hospital with pulmonary embolism. PROBLEMS: 1. PE with pulmonary infarct. Pain medication as prescribed. Incentive spirometry. Patient is placed on heparin drip given recent surgical procedure. Risk and benefit with different agent has been discussed with the patient. Patient prefers Coumadin. Will start Coumadin once the patient's international normalized ratio (INR) is therapeutic. Will discuss with surgery to make sure they are comfortable with current management given patient's surgery of reversal colostomy had to be delayed. Pain medication. Ultrasound Doppler. Hypercoagulable workup. Most likely PE is secondary to recent surgery and immobility. Hypercoagulable workup has been sent. Followup PT/INR, oxygen, echos, cardiac enzymes, ultrasound Dopplers. 2. Leukocytosis. Likely reactive. Culture has been ordered. Will continue to monitor. 3. GERD. Will place the patient on proton pump inhibitor (PPI). 4. Smoking. Counseling provided. Time spent 5 minutes. Patient does not want to be on nicotine patch when nicotine patch was offered. He said he will request it once he really needs to. Patient is contemplating on quitting. 5. Recent perforated diverticulum with colostomy. Subsequent resection. Will discuss with surgery for further recommendations. 6. Deep venous thrombosis (DVT) prophylaxis. Patient on treatment for PE with heparin drip opting to Coumadin. DISPOSITION: Pending therapeutic INR. Will discuss the case with surgical team. Patient will need a primary care provider, and patient prefers Dr. Akila Durand where patient's follows with Dr. Akila Durand as well.
[2017-08-19 08:00] VITALS: BP 118/82
[2017-08-19] MEDS: SENOKOT S TAB PO SCH ×2 (09:07→20:26)
[2017-08-19] MEDS: PANTOPRAZOLE 40MG TAB (PROTONIX) PO SCH (09:07)
[2017-08-19 12:00] VITALS: BP 117/61
[2017-08-19] MEDS: IPRATROPIUM 0.5MG/ALBUTEROL 2.5MG INH SOL UD 3ML (DUONEB)(J7620) NEB PRN ×2 (12:30→16:50)
[2017-08-19] MEDS: HEPARIN SOD (PORCINE) 5000 UNITS/ML VIAL IV PRN (13:24)
[2017-08-19 14:51] VITALS: BP 134/76
--- NOTE | 2017-08-19 19:14 | ECHO ---
DATE OF PROCEDURE: 08/19/2017 REFERRING PHYSICIANS: Dr. Brown and Dr. Hancock INDICATION: Dyspnea. Study was performed on 08/19/2017. The patient measures 173 cm and weighs 78 kg. DIMENSIONS: IVS: 0.9 LV: 3.3 LVPW: 0.9 LA: 3.1 Aorta: 2.8 FINDINGS: The study is of rather difficult technical quality. It was only sitting exam. Left ventricle is of normal size and systolic function, I estimate ejection fraction (EF) around 65-70%. Right ventricle does not appear grossly enlarged. Both atria appear normal. Aortic, mitral, tricuspid and pulmonic valve were reasonably well seen and appear grossly normal. No pericardial effusion is noted. Inferior vena cava is at upper limits of normal size but collapses appropriately with respirations. Aortic root is normal. Aortic arch and abdominal aorta were not well seen. Doppler interrogation: There was no significant aortic or mitral valve disease. There is trace tricuspid insufficiency, but quality of TR jet was not sufficient to adequately estimate pulmonary artery pressure. Pulmonic valve is functionally grossly competent. Mitral inflow pattern and tissue Doppler imaging of mitral annulus reveal normal diastolic function of left ventricle. CONCLUSION: 1. The study is of fair technical quality. 2. Normal left ventricular (LV) size and systolic function. Normal diastolic function. 3. No significant valvular disease. 4. Probably mildly elevated central venous pressure. 5. Unable to estimate pulmonary artery pressure. COMMENT: Subacute bacterial endocarditis (SBE) prophylaxis is not recommended. Study does not provide obvious explanation for dyspnea.
[2017-08-19 20:00] VITALS: BP 139/67
[2017-08-19 22:08] LABS: MICROSCOPIC INDICATED? MAN NO (NO)
[2017-08-19 23:59] VITALS: BP 125/69
[2017-08-20] MEDS: PERCOCET 5MG/325MG TAB PO PRN ×4 (00:11→15:33)
[2017-08-20 04:00] VITALS: BP 150/78
[2017-08-20 06:01] LABS: MEAN CORPUSCULAR HEMOGLOBIN 30.2 pg (27.0-33.0); MEAN CORPUSCULAR HGB CONC 33.7 g/dl (32.0-36.5); MEAN CORPUSCULAR VOLUME 89.8 fl (80.0-96.0); WHITE BLOOD COUNT 8.7 10^3/uL (4.0-10.0)
[2017-08-20 06:12] LABS: ANION GAP 5 MEQ/L (8-16); BLOOD UREA NITROGEN 9 MG/DL (7-18); CALCIUM LEVEL 8.8 MG/DL (8.5-10.1); CARBON DIOXIDE LEVEL 32 MEQ/L (21-32); CHLORIDE LEVEL 99 MEQ/L (98-107); CREATININE FOR GFR 0.81 MG/DL (0.70-1.30); GLOMERULAR FILTRATION RATE > 60.0 (>60); GLUCOSE, FASTING 121 MG/DL (70-105); MAGNESIUM LEVEL 2.1 MG/DL (1.8-2.4); POTASSIUM SERUM 3.9 MEQ/L (3.5-5.1); SODIUM LEVEL 136 MEQ/L (136-145)
[2017-08-20] MEDS: MORPHINE 2 MG/ML 1ML SYRINGE IV PRN ×3 (06:13→18:22)
[2017-08-20 08:00] VITALS: BP 112/64
[2017-08-20] MEDS: PANTOPRAZOLE 40MG TAB (PROTONIX) PO SCH (08:05)
[2017-08-20] MEDS: SENOKOT S TAB PO SCH ×2 (08:05→20:41)
--- NOTE | 2017-08-20 09:12 | ECGEPIP ---
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
[2017-08-20] MEDS: HEPARIN SOD (PORCINE) 5000 UNITS/ML VIAL IV PRN (09:54)
[2017-08-20] MEDS: oxyCODONE 10 MG CR TAB PO SCH ×2 (11:26→20:41)
[2017-08-20 12:00] VITALS: BP 125/69
--- NOTE | 2017-08-20 13:19 | REP ---
CT thoracic spine without contrast History: Back pain Small posterior osteophytes are present at the T5-6 level. There is minimal narrowing of the spinal canal. The T5 neural foramina are patent. A small right paracentral disc protrusion with associate osteophyte formation is present at the T11-12 level. There is minimal narrowing of the spinal canal. The T11 neural foramina are patent. There is no other disc bulge or herniation. The remaining neural foramina are patent. There is loss of height of several mid and lower thoracic intervertebral discs. There are old compression fractures of the T7 and T8 vertebral bodies with minimal height loss. There is no subluxation. Patchy density is present in the right lower lobe consistent with atelectasis or infiltrate. IMPRESSION: 1. Degenerative change as described above. 2. Old T7 and T8 compression fractures with minimal height loss. 3. Right lower lobe atelectasis or infiltrate. Signed by Connor Rocha MD 08/20/2017 01:45 P
--- NOTE | 2017-08-20 13:21 | REP ---
CT LUMBAR SPINE WITHOUT CONTRAST: HISTORY: Back pain. There is no disc bulge or herniation at the L1-2 through L4-5 levels. The nerves exit the neural foramina without compression. A diffuse disc bulge is present at the L5-S1 level. There is minimal compression of the thecal sac. The L5 nerves exit the neural foramina without compression. The intervertebral discs are normal in height. There is no subluxation. IMPRESSION: Diffuse disc bulge at the L5-S1 level with minimal thecal sac compression. Signed by Connor Rocha MD 08/20/2017 01:45 P
--- NOTE | 2017-08-20 14:51 | IPNPDOC ---
Text Note Date of Service The patient was seen on 08/20/17. NOTE Subjective: Patient states he has a right lower back/chest wall pain. Denies shortness of breath or palpitations. Objective: Vitals: (see below) General: No acute distress, laying comfortably in bed. HEENT: Moist mucous membranes. Neck: No JVD or lymphadenopathy Cardiac: RRR, No murmurs Pulm: Coarse crackles right lower base. No wheezing, rhonchi Abd: NT/ND + BS. Colostomy bag intact. No leakage. Ext: No edema or cyanosis Labs (see below) Images: 08/19/17 IMPRESSION: Bilateral lower lobe segmental branches pulmonary emboli. Associated multifocal subpleural airspace disease more prominent in the right lower lobe. Findings are suggestive of developing pulmonary infarction. CT abdomen/ pelvis on 08/19/17 IMPRESSION: Groundglass densities in the right lower lobe. Pneumonitis is suspected. Surgical changes of the small bowels. Unremarkable left lower quadrant colostomy. Mild prostatomegaly. Fat containing left inguinal hernia without incarceration. Apparent thickening of the under distended rectosigmoid colon. Lower extremity ultrasound on 08/19/17 IMPRESSION: No evidence of DVT in the lower extremities bilaterally. Echocardiogram 08/19/17 FINDINGS: The study is of rather difficult technical quality. It was only sitting exam. Left ventricle is of normal size and systolic function, I estimate ejection fraction (EF) around 65-70%. Right ventricle does not appear grossly enlarged. Both atria appear normal. Aortic, mitral, tricuspid and pulmonic valve were reasonably well seen and appear grossly normal. No pericardial effusion is noted. Inferior vena cava is at upper limits of normal size but collapses appropriately with respirations. Aortic root is normal. Aortic arch and abdominal aorta were not well seen. Doppler interrogation: There was no significant aortic or mitral valve disease. There is trace tricuspid insufficiency, but quality of TR jet was not sufficient to adequately estimate pulmonary artery pressure. Pulmonic valve is functionally grossly competent. Mitral inflow pattern and tissue Doppler imaging of mitral annulus reveal normal diastolic function of left ventricle. CONCLUSION: 1. The study is of fair technical quality. 2. Normal left ventricular (LV) size and systolic function. Normal diastolic function. 3. No significant valvular disease. 4. Probably mildly elevated central venous pressure. 5. Unable to estimate pulmonary artery pressure. CT lumbar spine 08/19/17 IMPRESSION: Diffuse disc bulge at the L5-S1 level with minimal thecal sac compression. CT thoracic spine 08/19/17 IMPRESSION: 1. Degenerative change as described above. 2. Old T7 and T8 compression fractures with minimal height loss. 3. Right lower lobe atelectasis or infiltrate. Assessment/Plan 1. Bilateral pulmonary embolism- recent surgery, immobility, as well as active tobacco abuse. Hemodynamically stable. Not requiring oxygen therapy. No RV strain on echocardiogram. On heparin drip with bridge to Coumadin. 2. ? Developing pulmonary infarction versus pneumonia - patient has started to develop fevers, and since there is concern for developing infiltrates we will start Levaquin. Will also consult pulmonary. Follow blood cultures. 3. Tobacco abuse- patient has been counseled on cessation. He is aware that tobacco abuse increases risk for hypercoagulable states. Refuses nicotine patch at this time. States he would like to follow-up with his primary care physician regarding this. 4. Chest wall/back pain- CT lumbar/thoracic (see above). No acute fracture. Continue with pain control. Likely secondary to patient's pulmonary embolism with possible infarction. Has been started on OxyContin. Pain management consulted. 5. Recent perforated diverticulum status post colostomy 6. GERD- on PPI DVT prophy: Heparin with bridge to Coumadin Prognosis guarded VS,Fishbone, I+O VS, Fishbone, I+O Laboratory Tests 08/20/17 05:33 Red Blood Count 4.20 L, Mean Corpuscular Volume 89.8, Mean Corpuscular Hemoglobin 30.2, Mean Corpuscular Hemoglobin Concent 33.7, Red Cell Distribution Width 13.0, Calcium Level 8.8 Vital Signs Date Time Temp Pulse Resp B/P (MAP) Pulse Ox O2 Delivery O2 Flow Rate FiO2 08/20/17 13:15 99.9 08/20/17 12:00 101 18 125/69 (87) 96 Room Air I&O- Last 24 Hours up to 6 AM 08/21/17 06:00 Intake Total 120 ml Output Total 450 ml Balance -330 ml YUNIOR SUAZO MD Aug 20, 2017 14:51
[2017-08-20] MEDS: LevoFLOXacin IV 500 MG in APPROPRIATE DILUENT 1 EA IV SCH (15:34)
[2017-08-20] MEDS: IPRATROPIUM 0.5MG/ALBUTEROL 2.5MG INH SOL UD 3ML (DUONEB)(J7620) NEB PRN (15:40)
[2017-08-20 16:00] VITALS: BP 132/70
[2017-08-20] MEDS: WARFARIN SOD 5 MG TAB PO SCH (17:14)
[2017-08-20] MEDS ORDERED: NS 1,000 ML IV SCH (18:00)
[2017-08-20] MEDS ORDERED: MOM 30ML SUSPENSION UDC PO PRN (18:30)
--- NOTE | 2017-08-20 19:19 | CR ---
DATE OF CONSULTATION: 08/20/2017 CHIEF COMPLAINT: Right posterior chest pain. REFERRING PROVIDER: Dr. Romero HISTORY OF PRESENT ILLNESS: Jake is a 46-year-old gentleman admitted yesterday for severe right chest pain. He has a diagnosis of pulmonary emboli. Rating pain level as a 6/10. Pain is exacerbated with activity i.e. brushing his teeth or walking. Pain is relieved somewhat with current pain medication. Reports improvement in pain control with addition of OxyContin 10 mg which he had his first dose this morning. Receiving Percocet 5-325 2 tablets or morphine 2 mg IV for severe pain. Reporting decrease in pain after morphine from 7/10 VAS to 4/ 10 VAS this evening. History of bowel resection for diverticulitis a few weeks ago. Currently has temporary colostomy. Reporting normal urination. PAST MEDICAL HISTORY: Recent perforated diverticulum with sigmoid colon resection and colostomy, scheduled to reverse in the next 2-3 months. Gastroesophageal reflux disease, smoking. PAST SURGICAL HISTORY: Tonsillectomy, sigmoid resection with colon colostomy. SOCIAL HISTORY: The patient smokes one pack per day for several years. He drinks small amount of beer weekly. . Lives with his . FAMILY HISTORY: Father with [place] at age 61. Paternal grandparents with coronary artery disease. REVIEW OF SYSTEMS: 11-point review of systems is negative except for as described in HPI. PHYSICAL EXAMINATION: Awake, alert, appears slightly anxious and guarding due to pain. Vital signs: 99.5/119/18, BP 132/70, O2 sat is 95% on room air. Cardiac - S1-S2 normal rate and rhythm. Respiratory - lung sounds clear. Respirations nonlabored. Inspection of spine - tenderness with palpation over the right mid thoracic to upper thoracic region with palpation. ASSESSMENT: Acute pain secondary to pulmonary emboli. PLAN: Recommend continuing course of OxyContin 10 mg twice a day, Percocet 05/ 325 2 tablets or morphine 2 mg IV as needed for severe pain episodes. I predict that he will need this type of pain medication for approximately two to three more days and then discontinue.. Thank you for allowing us to participate in the care of your patient. If you have any questions or concerns please do not hesitate to contact me. cc: Robi Romero MD GR[facility]QUARE HOSPITALYung
[2017-08-20] MEDS: HEPARIN DRIP 25,000 UNITS in APPROPRIATE DILUENT 1 EA IV SCH (19:27)
--- NOTE | 2017-08-20 20:26 | ECGEPIP ---
Stationary ECG Study 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
[2017-08-20 20:30] VITALS: BP 119/65
[2017-08-20] MEDS: MIRALAX *UNIT DOSE* 17GM PACKET PO SCH (20:41)
[2017-08-21] MEDS: PERCOCET 5MG/325MG TAB PO PRN ×2 (00:37→06:49)
[2017-08-21 00:39] VITALS: BP 124/69
[2017-08-21 04:23] VITALS: BP 129/70
[2017-08-21 05:38] LABS: MEAN CORPUSCULAR HEMOGLOBIN 30.2 pg (27.0-33.0); MEAN CORPUSCULAR HGB CONC 33.2 g/dl (32.0-36.5); MEAN CORPUSCULAR VOLUME 90.8 fl (80.0-96.0); RED CELL DISTRIBUTION WIDTH 12.9 % (11.5-14.5); WHITE BLOOD COUNT 9.1 10^3/uL (4.0-10.0)
[2017-08-21 05:48] LABS: INR 1.16
[2017-08-21 06:10] LABS: ANION GAP 4 MEQ/L (8-16); BLOOD UREA NITROGEN 7 MG/DL (7-18); CARBON DIOXIDE LEVEL 32 MEQ/L (21-32); CHLORIDE LEVEL 100 MEQ/L (98-107); CREATININE FOR GFR 0.75 MG/DL (0.70-1.30); GLOMERULAR FILTRATION RATE > 60.0 (>60); GLUCOSE, FASTING 105 MG/DL (70-105); MAGNESIUM LEVEL 2.4 MG/DL (1.8-2.4); POTASSIUM SERUM 4.6 MEQ/L (3.5-5.1); SODIUM LEVEL 136 MEQ/L (136-145)
[2017-08-21 08:00] VITALS: BP 113/74
[2017-08-21] MEDS: MIRALAX *UNIT DOSE* 17GM PACKET PO SCH ×2 (08:36→21:00)
[2017-08-21] MEDS: SENOKOT S TAB PO SCH ×2 (08:36→21:00)
[2017-08-21] MEDS: oxyCODONE 10 MG CR TAB PO SCH ×2 (08:36→21:13)
[2017-08-21] MEDS: PANTOPRAZOLE 40MG TAB (PROTONIX) PO SCH (08:36)
[2017-08-21] MEDS ORDERED: MAGNESIUM CITRATE 300 ML BTL PO ONE ×2 (10:00→17:45)
[2017-08-21 12:00] VITALS: BP 111/70
--- NOTE | 2017-08-21 14:25 | IPNPDOC ---
Text Note Date of Service The patient was seen on 08/21/17. NOTE Subjective: Patient states his right lower back/chest wall pain is very well controlled. Denies shortness of breath or palpitations. Objective: Vitals: (see below) General: No acute distress, laying comfortably in bed. HEENT: Moist mucous membranes. Neck: No JVD or lymphadenopathy Cardiac: RRR, No murmurs Pulm: Coarse crackles right lower base. No wheezing, rhonchi Abd: NT/ND + BS. Colostomy bag intact. No leakage. Ext: No edema or cyanosis Labs (see below) Images: 08/19/17 IMPRESSION: Bilateral lower lobe segmental branches pulmonary emboli. Associated multifocal subpleural airspace disease more prominent in the right lower lobe. Findings are suggestive of developing pulmonary infarction. CT abdomen/ pelvis on 08/19/17 IMPRESSION: Groundglass densities in the right lower lobe. Pneumonitis is suspected. Surgical changes of the small bowels. Unremarkable left lower quadrant colostomy. Mild prostatomegaly. Fat containing left inguinal hernia without incarceration. Apparent thickening of the under distended rectosigmoid colon. Lower extremity ultrasound on 08/19/17 IMPRESSION: No evidence of DVT in the lower extremities bilaterally. Echocardiogram 08/19/17 FINDINGS: The study is of rather difficult technical quality. It was only sitting exam. Left ventricle is of normal size and systolic function, I estimate ejection fraction (EF) around 65-70%. Right ventricle does not appear grossly enlarged. Both atria appear normal. Aortic, mitral, tricuspid and pulmonic valve were reasonably well seen and appear grossly normal. No pericardial effusion is noted. Inferior vena cava is at upper limits of normal size but collapses appropriately with respirations. Aortic root is normal. Aortic arch and abdominal aorta were not well seen. Doppler interrogation: There was no significant aortic or mitral valve disease. There is trace tricuspid insufficiency, but quality of TR jet was not sufficient to adequately estimate pulmonary artery pressure. Pulmonic valve is functionally grossly competent. Mitral inflow pattern and tissue Doppler imaging of mitral annulus reveal normal diastolic function of left ventricle. CONCLUSION: 1. The study is of fair technical quality. 2. Normal left ventricular (LV) size and systolic function. Normal diastolic function. 3. No significant valvular disease. 4. Probably mildly elevated central venous pressure. 5. Unable to estimate pulmonary artery pressure. CT lumbar spine 08/19/17 IMPRESSION: Diffuse disc bulge at the L5-S1 level with minimal thecal sac compression. CT thoracic spine 08/19/17 IMPRESSION: 1. Degenerative change as described above. 2. Old T7 and T8 compression fractures with minimal height loss. 3. Right lower lobe atelectasis or infiltrate. Assessment/Plan 1. Bilateral pulmonary embolism- recent surgery, immobility, as well as active tobacco abuse. Hemodynamically stable. Not requiring oxygen therapy. No RV strain on echocardiogram. On heparin drip with bridge to Coumadin. 2. Developing pulmonary infarction versus ?pneumonia - patient has started to develop fevers, and since there is concern for developing infiltrates we will start Levaquin. Will also consult pulmonary. Follow blood cultures. 3. Tobacco abuse- patient has been counseled on cessation. He is aware that tobacco abuse increases risk for hypercoagulable states. Refuses nicotine patch at this time. States he would like to follow-up with his primary care physician regarding this. 4. Chest wall/back pain- CT lumbar/thoracic (see above). No acute fracture. Continue with pain control. Likely secondary to patient's pulmonary embolism with possible infarction. Has been started on OxyContin. Pain management consulted. 5. Recent perforated diverticulum status post colostomy 6. GERD- on PPI 7. Constipation- we will optimize bowel regimen. Started on mag citrate today. DVT prophy: Heparin with bridge to Coumadin Prognosis guarded VS,Fishbone, I+O VS, Fishbone, I+O Laboratory Tests 08/21/17 05:26 Red Blood Count 4.04 L, Mean Corpuscular Volume 90.8, Mean Corpuscular Hemoglobin 30.2, Mean Corpuscular Hemoglobin Concent 33.2, Red Cell Distribution Width 12.9, Calcium Level 9.0 Vital Signs Date Time Temp Pulse Resp B/P (MAP) Pulse Ox O2 Delivery O2 Flow Rate FiO2 08/21/17 08:36 18 08/21/17 08:00 Room Air 08/21/17 08:00 98.3 93 113/74 (87) 96 I&O- Last 24 Hours up to 6 AM 08/22/17 06:00 Intake Total 360 ml Output Total 400 ml Balance -40 ml YUNIOR SUAZO MD Aug 21, 2017 14:25
[2017-08-21] MEDS: LevoFLOXacin IV 500 MG in APPROPRIATE DILUENT 1 EA IV SCH (15:54)
[2017-08-21] MEDS: HEPARIN DRIP 25,000 UNITS in APPROPRIATE DILUENT 1 EA IV SCH (15:55)
[2017-08-21 16:00] VITALS: BP 119/57
[2017-08-21] MEDS: WARFARIN SOD 5 MG TAB PO SCH (16:19)
[2017-08-21] MEDS: IPRATROPIUM 0.5MG/ALBUTEROL 2.5MG INH SOL UD 3ML (DUONEB)(J7620) NEB PRN (16:50)
[2017-08-21 20:00] VITALS: BP 128/76
--- NOTE | 2017-08-21 20:49 | CR ---
DATE OF CONSULTATION: 08/21/2017 CHIEF COMPLAINT: Asked by Dr. oRmero to consult on Mr. Lacey for abnormal chest CT scan. HISTORY OF PRESENT ILLNESS: Mr. Lacey is a 46-year-old white male who has a recent past medical history of having had a colonic perforation secondary to diverticulosis, for which he had sigmoid colon resection and colostomy formation on 07/31/2017. He was discharged on 08/03/2017. He reports to me that he was walking the dog at home and becoming more active. On 08/18/2017, he awoke with right-sided posterior pain with associated shortness of breath. The pain intensified during the day and had a pleuritic component to it. He presented to the emergency room on 08/19/2017, where he was found to have pulmonary emboli, and he was admitted. He had no cough. No hemoptysis. No other chest pain or pressure. No fevers, chills, or drenching night sweats. No ill contacts. No palpitations. No abdominal pain. No lower extremity edema or calf pain. As noted above, he had been active since he got home. Since his discharge, he has not had any long car rides or plane trips. 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 ALLERGIES: No known drug allergies. MEDICATIONS ON ADMISSION: - Tums 1500 mg by mouth every 6 hours as needed - acetaminophen 1000 mg by mouth every 6 hours as needed PAST MEDICAL HISTORY: 1. Status post colostomy and sigmoid colon resection on July 2017 secondary to perforated tic. Scheduled reversal in 2-3 months. 2. Gastroesophageal reflux disease (GERD). 3. Status post tonsillectomy. 4. Tobacco usage, ongoing. SOCIAL HISTORY: Mr. Lacey started smoking at age 14 and has averaged approximately one pack per day, giving him a slightly greater than 30 pack-year history. He may have alcohol one time per week. No recreational drug usage. 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 He has a Yorkie as a pet. FAMILY HISTORY: His father had a myocardial infarction at age 61. He has paternal grandparents with coronary artery disease. There is no family history of thromboembolic events. REVIEW OF SYSTEMS: Per history of present illness (HPI). Remainder of review of systems is negative. PHYSICAL EXAMINATION: GENERAL: Mr. Lacey is lying in bed in no acute distress. He can complete full sentences. No cough throughout the evaluation. VITAL SIGNS: Temperature 98.5 with a maximum temperature (Tmax) of 100.2. Pulse 92, respiratory rate 18, blood pressure 111/70 with a mean arterial pressure (MAP) of 84, SpO2 of 96% on room air. HEENT: Anicteric. Nares patent bilaterally. Normal nasal mucosa. Oropharynx clear. No lesions. No evidence of drainage in the posterior pharynx. Good dentition. Mallampati IV. NECK: Supple. Without jugular venous distention (JVD). Without thyromegaly or masses. Trachea is midline. LYMPHATICS: Without cervical or supraclavicular lymphadenopathy. CHEST: Normal shape. LUNGS: Symmetric excursion. Good air entry. No wheeze, rhonchi, or crackle on tidal excursion or forced maneuver. Normal I-to-E change in force maneuver. No accessory muscle usage or retractions. Normal percussion on palpation. CARDIOVASCULAR: Regular rate and rhythm with normal S1, S2. No murmur, rub, or gallop appreciated. ABDOMEN: Normoactive bowel sounds. Soft, nondistended, nontender. Well-healed surgical scar. Colostomy in place. EXTREMITIES: Without clubbing, cyanosis, or edema. No calf tenderness. Palpable pedal pulses bilaterally. LABORATORY DATA: CBC showed a hemoglobin of 12.2, hematocrit 36.7, platelet count 245,000, white blood cell count 9,100. Chemistries showed sodium 136, potassium 4.6, chloride 100, bicarbonate 32, anion gap 4, BUN 7, creatinine 0.8, glucose 105, calcium 9.0, magnesium 2.4. Arterial blood gas on 08/19/2017 was 7.41/41/78 with a measured saturation 96.4 and a base excess of 1.0. I do not know how much oxygen this was drawn on. Clotting cascade pending. I reviewed his chest CT scan as well as the report from 08/19/2017. That CT showed normal appearing cardiac silhouette and pulmonary vascular shadows. No mediastinal or hilar lymphadenopathy. There were bilateral pulmonary emboli in the lower lobes, more predominant on the right. There was a small region peripherally of ground glass opacities in alignment with some of the right lower lobe pulmonary emboli. IMPRESSION: 1. Abnormal chest CT scan. Mr. Lacey has evidence of bilateral lower lobe pulmonary emboli, greater on the right. While he has mild ground glass opacity peripherally, it is in line with his pulmonary emboli and consistent with a pulmonary infarction. He has no clinical history to suggest a pneumonic process. Elevation in WBC counts and fevers can be seen with pulmonary emboli. 2. Pulmonary emboli. Most likely, this is secondary to his recent surgery and immobility. Clotting cascade is pending. 3. Status post recent abdominal surgery secondary to perforated tic with formation of colostomy. 4. Tobacco usage, ongoing. RECOMMENDATIONS: 1. I feel the findings on the chest CT scan combined with his history are consistent with a pulmonary infarction and not a pneumonic process. 2. I recommend discontinuance antibiotics. 3. I recommend continuing anticoagulation. If his clotting cascade is negative , I feel it is reasonable to consider this pulmonary emboli in the setting of a known risk factor. Therefore, the recommendation would be for anticoagulation for 3 months. However, Mr. Lacey and his were planning a trip to [place], I believe, in February. Given that information and his recent pulmonary emboli, consideration could be for continuation of anticoagulation longer, although this should not be considered an absolute necessity. Another consideration would be to use a dosage of enoxaparin just prior to flying to [place] and just prior to flying back. They anticipate the flight will be 10 hours in length. Obviously, if his clotting cascade comes back positive, then he will need to remain on anticoagulation lifelong. 4. In regard to his pain, this is very consistent with what can be seen with pulmonary emboli, particularly with infarction. Recommend use of nonsteroidal medications plus or minus the use of narcotics depending upon the severity of his difficulty. He was able to symmetrically move his chest today and had no splinting. Thank you for this consultation. The consultation for the abnormal chest scan is considered complete. Please contact the pulmonary service if further issues arise. Edited: emeli 08/21/2017 [id number] GAGE
[2017-08-22] VITALS: BP 111/62
[2017-08-22 04:00] VITALS: BP 117/67
[2017-08-22 05:45] LABS: MEAN CORPUSCULAR HEMOGLOBIN 29.8 pg (27.0-33.0); MEAN CORPUSCULAR HGB CONC 33.2 g/dl (32.0-36.5); MEAN CORPUSCULAR VOLUME 89.8 fl (80.0-96.0); RED CELL DISTRIBUTION WIDTH 12.8 % (11.5-14.5); WHITE BLOOD COUNT 8.2 10^3/uL (4.0-10.0)
[2017-08-22 05:58] LABS: INR 1.24
[2017-08-22 06:13] LABS: ANION GAP 8 MEQ/L (8-16); BLOOD UREA NITROGEN 6 MG/DL (7-18); CALCIUM LEVEL 8.9 MG/DL (8.5-10.1); CARBON DIOXIDE LEVEL 30 MEQ/L (21-32); CHLORIDE LEVEL 98 MEQ/L (98-107); CREATININE FOR GFR 0.76 MG/DL (0.70-1.30); GLOMERULAR FILTRATION RATE > 60.0 (>60); GLUCOSE, FASTING 100 MG/DL (70-105); MAGNESIUM LEVEL 2.4 MG/DL (1.8-2.4); POTASSIUM SERUM 4.2 MEQ/L (3.5-5.1); SODIUM LEVEL 136 MEQ/L (136-145)
[2017-08-22 08:00] VITALS: BP 117/59
[2017-08-22] MEDS: SENOKOT S TAB PO SCH (09:00)
[2017-08-22] MEDS: MIRALAX *UNIT DOSE* 17GM PACKET PO SCH (09:00)
[2017-08-22] MEDS: PANTOPRAZOLE 40MG TAB (PROTONIX) PO SCH (09:45)
[2017-08-22] MEDS: oxyCODONE 10 MG CR TAB PO SCH ×2 (09:45→20:10)
[2017-08-22] MEDS: HEPARIN DRIP 25,000 UNITS in APPROPRIATE DILUENT 1 EA IV SCH (09:50)
[2017-08-22 11:55] VITALS: BP 118/57
--- NOTE | 2017-08-22 14:49 | IPNPDOC ---
Text Note Date of Service The patient was seen on 08/22/17. NOTE Subjective: Patient had multiple bowel movements yesterday. Denies chest pain/ shortness of breath/palpitations. Pain well-controlled. Objective: Vitals: (see below) General: No acute distress, laying comfortably in bed. HEENT: Moist mucous membranes. Neck: No JVD or lymphadenopathy Cardiac: RRR, No murmurs Pulm: Coarse crackles right lower base. No wheezing, rhonchi Abd: NT/ND + BS. Colostomy bag intact. No leakage. Ext: No edema or cyanosis Labs (see below) Images: 08/19/17 IMPRESSION: Bilateral lower lobe segmental branches pulmonary emboli. Associated multifocal subpleural airspace disease more prominent in the right lower lobe. Findings are suggestive of developing pulmonary infarction. CT abdomen/ pelvis on 08/19/17 IMPRESSION: Groundglass densities in the right lower lobe. Pneumonitis is suspected. Surgical changes of the small bowels. Unremarkable left lower quadrant colostomy. Mild prostatomegaly. Fat containing left inguinal hernia without incarceration. Apparent thickening of the under distended rectosigmoid colon. Lower extremity ultrasound on 08/19/17 IMPRESSION: No evidence of DVT in the lower extremities bilaterally. Echocardiogram 08/19/17 FINDINGS: The study is of rather difficult technical quality. It was only sitting exam. Left ventricle is of normal size and systolic function, I estimate ejection fraction (EF) around 65-70%. Right ventricle does not appear grossly enlarged. Both atria appear normal. Aortic, mitral, tricuspid and pulmonic valve were reasonably well seen and appear grossly normal. No pericardial effusion is noted. Inferior vena cava is at upper limits of normal size but collapses appropriately with respirations. Aortic root is normal. Aortic arch and abdominal aorta were not well seen. Doppler interrogation: There was no significant aortic or mitral valve disease. There is trace tricuspid insufficiency, but quality of TR jet was not sufficient to adequately estimate pulmonary artery pressure. Pulmonic valve is functionally grossly competent. Mitral inflow pattern and tissue Doppler imaging of mitral annulus reveal normal diastolic function of left ventricle. CONCLUSION: 1. The study is of fair technical quality. 2. Normal left ventricular (LV) size and systolic function. Normal diastolic function. 3. No significant valvular disease. 4. Probably mildly elevated central venous pressure. 5. Unable to estimate pulmonary artery pressure. CT lumbar spine 08/19/17 IMPRESSION: Diffuse disc bulge at the L5-S1 level with minimal thecal sac compression. CT thoracic spine 08/19/17 IMPRESSION: 1. Degenerative change as described above. 2. Old T7 and T8 compression fractures with minimal height loss. 3. Right lower lobe atelectasis or infiltrate. Assessment/Plan 1. Bilateral pulmonary embolism- recent surgery, immobility, as well as active tobacco abuse. Hemodynamically stable. Not requiring oxygen therapy. No RV strain on echocardiogram. On heparin drip with bridge to Coumadin. Increase Coumadin dose to 7.5. 2. Developing pulmonary infarction versus ?pneumonia - patient has started to develop fevers, and since there is concern for developing infiltrates we will start Levaquin. Will also consult pulmonary. Follow blood cultures. 3. Tobacco abuse- patient has been counseled on cessation. He is aware that tobacco abuse increases risk for hypercoagulable states. Refuses nicotine patch at this time. States he would like to follow-up with his primary care physician regarding this. 4. Chest wall/back pain- CT lumbar/thoracic (see above). No acute fracture. Continue with pain control. Likely secondary to patient's pulmonary embolism with possible infarction. Has been started on OxyContin. Pain management consulted. 5. Recent perforated diverticulum status post colostomy 6. GERD- on PPI 7. Constipation- resolved. DVT prophy: Heparin with bridge to Coumadin Prognosis guarded VS,Fishbone, I+O VS, Fishbone, I+O Laboratory Tests 08/22/17 05:17 Red Blood Count 3.92 L, Mean Corpuscular Volume 89.8, Mean Corpuscular Hemoglobin 29.8, Mean Corpuscular Hemoglobin Concent 33.2, Red Cell Distribution Width 12.8, Calcium Level 8.9 Vital Signs Date Time Temp Pulse Resp B/P (MAP) Pulse Ox O2 Delivery O2 Flow Rate FiO2 08/22/17 11:55 97.4 95 18 118/57 (77) 96 Room Air I&O- Last 24 Hours up to 6 AM 08/23/17 05:59 Intake Total 648 ml Output Total 300 ml Balance 348 ml YUNIOR SUAZO MD Aug 22, 2017 14:48
[2017-08-22 15:55] VITALS: BP 123/71
[2017-08-22] MEDS: WARFARIN SOD 7.5 MG TAB PO SCH (17:06)
[2017-08-22 20:00] VITALS: BP 123/70
[2017-08-23] VITALS (7 sets, daily range): BP systolic 107–139; BP diastolic 60–78
[2017-08-23 00:06] LABS: PROTEIN C ANTIGEN 90 % (60-150); PROTEIN S ANTIGEN FREE 105 % (57-157); PROTEIN S ANTIGEN TOTAL 91 % (60-150); SJOGREN'S ANTI SS-A <0.2 AI (0.0-0.9); SJOGREN'S ANTI SS-B <0.2 AI (0.0-0.9)
[2017-08-23] MEDS: HEPARIN DRIP 25,000 UNITS in APPROPRIATE DILUENT 1 EA IV SCH ×2 (03:24→23:55)
[2017-08-23 06:09] LABS: MEAN CORPUSCULAR HEMOGLOBIN 29.8 pg (27.0-33.0); MEAN CORPUSCULAR HGB CONC 32.3 g/dl (32.0-36.5); MEAN CORPUSCULAR VOLUME 92.2 fl (80.0-96.0); RED CELL DISTRIBUTION WIDTH 12.7 % (11.5-14.5); WHITE BLOOD COUNT 7.5 10^3/uL (4.0-10.0)
[2017-08-23 06:22] LABS: INR 1.5
[2017-08-23 06:39] LABS: ANION GAP 8 MEQ/L (8-16); BLOOD UREA NITROGEN 8 MG/DL (7-18); CALCIUM LEVEL 9.5 MG/DL (8.5-10.1); CARBON DIOXIDE LEVEL 30 MEQ/L (21-32); CHLORIDE LEVEL 99 MEQ/L (98-107); CREATININE FOR GFR 0.81 MG/DL (0.70-1.30); GLOMERULAR FILTRATION RATE > 60.0 (>60); GLUCOSE, FASTING 99 MG/DL (70-105); MAGNESIUM LEVEL 2.2 MG/DL (1.8-2.4); POTASSIUM SERUM 4.2 MEQ/L (3.5-5.1); SODIUM LEVEL 137 MEQ/L (136-145)
[2017-08-23] MEDS: oxyCODONE 10 MG CR TAB PO SCH ×4 (08:35→21:29)
[2017-08-23] MEDS: PANTOPRAZOLE 40MG TAB (PROTONIX) PO SCH (08:35)
[2017-08-23] MEDS ORDERED: SENOKOT S TAB PO PRN (09:00)
--- NOTE | 2017-08-23 15:43 | IPNPDOC ---
Text Note Date of Service The patient was seen on 08/23/17. NOTE Subjective: No acute changes overnight. Denies chest pain/shortness of breath/ palpitations. Objective: Vitals: (see below) General: No acute distress, laying comfortably in bed. HEENT: Moist mucous membranes. Neck: No JVD or lymphadenopathy Cardiac: RRR, No murmurs Pulm: Coarse crackles right lower base. No wheezing, rhonchi Abd: NT/ND + BS. Colostomy bag intact. No leakage. Ext: No edema or cyanosis Labs (see below) Images: 08/19/17 IMPRESSION: Bilateral lower lobe segmental branches pulmonary emboli. Associated multifocal subpleural airspace disease more prominent in the right lower lobe. Findings are suggestive of developing pulmonary infarction. CT abdomen/ pelvis on 08/19/17 IMPRESSION: Groundglass densities in the right lower lobe. Pneumonitis is suspected. Surgical changes of the small bowels. Unremarkable left lower quadrant colostomy. Mild prostatomegaly. Fat containing left inguinal hernia without incarceration. Apparent thickening of the under distended rectosigmoid colon. Lower extremity ultrasound on 08/19/17 IMPRESSION: No evidence of DVT in the lower extremities bilaterally. Echocardiogram 08/19/17 FINDINGS: The study is of rather difficult technical quality. It was only sitting exam. Left ventricle is of normal size and systolic function, I estimate ejection fraction (EF) around 65-70%. Right ventricle does not appear grossly enlarged. Both atria appear normal. Aortic, mitral, tricuspid and pulmonic valve were reasonably well seen and appear grossly normal. No pericardial effusion is noted. Inferior vena cava is at upper limits of normal size but collapses appropriately with respirations. Aortic root is normal. Aortic arch and abdominal aorta were not well seen. Doppler interrogation: There was no significant aortic or mitral valve disease. There is trace tricuspid insufficiency, but quality of TR jet was not sufficient to adequately estimate pulmonary artery pressure. Pulmonic valve is functionally grossly competent. Mitral inflow pattern and tissue Doppler imaging of mitral annulus reveal normal diastolic function of left ventricle. CONCLUSION: 1. The study is of fair technical quality. 2. Normal left ventricular (LV) size and systolic function. Normal diastolic function. 3. No significant valvular disease. 4. Probably mildly elevated central venous pressure. 5. Unable to estimate pulmonary artery pressure. CT lumbar spine 08/19/17 IMPRESSION: Diffuse disc bulge at the L5-S1 level with minimal thecal sac compression. CT thoracic spine 08/19/17 IMPRESSION: 1. Degenerative change as described above. 2. Old T7 and T8 compression fractures with minimal height loss. 3. Right lower lobe atelectasis or infiltrate. Assessment/Plan 1. Bilateral pulmonary embolism- recent surgery, immobility, as well as active tobacco abuse. Hemodynamically stable. Not requiring oxygen therapy. No RV strain on echocardiogram. On heparin drip with bridge to Coumadin. Continue Coumadin dose to 7.5. 2. Developing pulmonary infarction versus ?pneumonia -evaluated by pulmonary with recommendations to discontinue Levaquin. Blood cultures negative. 3. Tobacco abuse- patient has been counseled on cessation. He is aware that tobacco abuse increases risk for hypercoagulable states. Refuses nicotine patch at this time. States he would like to follow-up with his primary care physician regarding this. 4. Chest wall/back pain- CT lumbar/thoracic (see above). No acute fracture. Continue with pain control. Likely secondary to patient's pulmonary embolism with possible infarction. Has been started on OxyContin. Pain management consulted. 5. Recent perforated diverticulum status post colostomy 6. GERD- on PPI 7. Constipation- resolved. DVT prophy: Heparin with bridge to Coumadin Prognosis guarded Plan to discharge when the patient's INR is 2-3. VS,Fishbone, I+O VS, Fishbone, I+O Laboratory Tests 08/23/17 05:35 Red Blood Count 4.47, Mean Corpuscular Volume 92.2, Mean Corpuscular Hemoglobin 29.8, Mean Corpuscular Hemoglobin Concent 32.3, Red Cell Distribution Width 12.7 , Calcium Level 9.5 Vital Signs Date Time Temp Pulse Resp B/P (MAP) Pulse Ox O2 Delivery O2 Flow Rate FiO2 08/23/17 12:00 98.0 80 18 139/78 (98) 98 Room Air I&O- Last 24 Hours up to 6 AM 08/24/17 06:00 Intake Total 1080 ml Output Total 900 ml Balance 180 ml YUNIOR SUAZO MD Aug 23, 2017 15:43
[2017-08-23] MEDS: WARFARIN SOD 7.5 MG TAB PO SCH (16:35)
[2017-08-23 19:16] LABS: INR 1.75
[2017-08-24 05:01] VITALS: BP 108/63
[2017-08-24 05:41] LABS: MEAN CORPUSCULAR HEMOGLOBIN 30.1 pg (27.0-33.0); MEAN CORPUSCULAR HGB CONC 33.9 g/dl (32.0-36.5); RED CELL DISTRIBUTION WIDTH 12.4 % (11.5-14.5); WHITE BLOOD COUNT 7.5 10^3/uL (4.0-10.0)
[2017-08-24 05:50] LABS: INR 2.26
[2017-08-24 06:41] VITALS: BP 111/67
[2017-08-24 08:17] VITALS: BP 112/66
[2017-08-24 09:20] LABS: ANION GAP 9 MEQ/L (8-16); BLOOD UREA NITROGEN 11 MG/DL (7-18); CALCIUM LEVEL 9.3 MG/DL (8.5-10.1); CARBON DIOXIDE LEVEL 27 MEQ/L (21-32); CHLORIDE LEVEL 100 MEQ/L (98-107); CREATININE FOR GFR 0.71 MG/DL (0.70-1.30); GLOMERULAR FILTRATION RATE > 60.0 (>60); GLUCOSE, FASTING 76 MG/DL (70-105); MAGNESIUM LEVEL 2.2 MG/DL (1.8-2.4); POTASSIUM SERUM 4.2 MEQ/L (3.5-5.1); SODIUM LEVEL 136 MEQ/L (136-145)
[2017-08-24] MEDS: PANTOPRAZOLE 40MG TAB (PROTONIX) PO SCH (09:36)
[2017-08-24] MEDS: oxyCODONE 10 MG CR TAB PO SCH (09:37)
[2017-08-24 12:00] VITALS: BP 112/64
--- NOTE | 2017-08-24 14:49 | IPNPDOC ---
Text Note Date of Service The patient was seen on 08/24/17. NOTE Subjective: No acute changes overnight. Denies chest pain/palpitations. Objective: Vitals: (see below) General: No acute distress, laying comfortably in bed. HEENT: Moist mucous membranes. Neck: No JVD or lymphadenopathy Cardiac: RRR, No murmurs Pulm: Coarse crackles right lower base. No wheezing, rhonchi Abd: NT/ND + BS. Colostomy bag intact. No leakage. Ext: No edema or cyanosis Labs (see below) Images: 08/19/17 IMPRESSION: Bilateral lower lobe segmental branches pulmonary emboli. Associated multifocal subpleural airspace disease more prominent in the right lower lobe. Findings are suggestive of developing pulmonary infarction. CT abdomen/ pelvis on 08/19/17 IMPRESSION: Groundglass densities in the right lower lobe. Pneumonitis is suspected. Surgical changes of the small bowels. Unremarkable left lower quadrant colostomy. Mild prostatomegaly. Fat containing left inguinal hernia without incarceration. Apparent thickening of the under distended rectosigmoid colon. Lower extremity ultrasound on 08/19/17 IMPRESSION: No evidence of DVT in the lower extremities bilaterally. Echocardiogram 08/19/17 FINDINGS: The study is of rather difficult technical quality. It was only sitting exam. Left ventricle is of normal size and systolic function, I estimate ejection fraction (EF) around 65-70%. Right ventricle does not appear grossly enlarged. Both atria appear normal. Aortic, mitral, tricuspid and pulmonic valve were reasonably well seen and appear grossly normal. No pericardial effusion is noted. Inferior vena cava is at upper limits of normal size but collapses appropriately with respirations. Aortic root is normal. Aortic arch and abdominal aorta were not well seen. Doppler interrogation: There was no significant aortic or mitral valve disease. There is trace tricuspid insufficiency, but quality of TR jet was not sufficient to adequately estimate pulmonary artery pressure. Pulmonic valve is functionally grossly competent. Mitral inflow pattern and tissue Doppler imaging of mitral annulus reveal normal diastolic function of left ventricle. CONCLUSION: 1. The study is of fair technical quality. 2. Normal left ventricular (LV) size and systolic function. Normal diastolic function. 3. No significant valvular disease. 4. Probably mildly elevated central venous pressure. 5. Unable to estimate pulmonary artery pressure. CT lumbar spine 08/19/17 IMPRESSION: Diffuse disc bulge at the L5-S1 level with minimal thecal sac compression. CT thoracic spine 08/19/17 IMPRESSION: 1. Degenerative change as described above. 2. Old T7 and T8 compression fractures with minimal height loss. 3. Right lower lobe atelectasis or infiltrate. Assessment/Plan 1. Bilateral pulmonary embolism- recent surgery, immobility, as well as active tobacco abuse. Hemodynamically stable. Not requiring oxygen therapy. No RV strain on echocardiogram. INR >2. D/c heparin Drip. Continue Coumadin. 2. Developing pulmonary infarction versus ?pneumonia -evaluated by pulmonary with recommendations to discontinue Levaquin. Blood cultures negative. 3. Tobacco abuse- patient has been counseled on cessation. He is aware that tobacco abuse increases risk for hypercoagulable states. Refuses nicotine patch at this time. States he would like to follow-up with his primary care physician regarding this. 4. Chest wall/back pain- CT lumbar/thoracic (see above). No acute fracture. Continue with pain control. Likely secondary to patient's pulmonary embolism with possible infarction. D/c OxyContin. Pain management consulted. Cont Percocet as needed. 5. Recent perforated diverticulum status post colostomy 6. GERD- on PPI 7. Constipation- resolved. 8. NSVT - 5 beats, asymptomatic. K>4, Mg>2. EF preserved. Start metoprolol. Will cont to monitor. DVT prophy: Coumadin Prognosis guarded Plan to discharge when the patient's INR is 2-3.0 VS,Fishbone, I+O VS, Fishbone, I+O Laboratory Tests 08/24/17 05:20 Red Blood Count 4.28 L, Mean Corpuscular Volume 89.0, Mean Corpuscular Hemoglobin 30.1, Mean Corpuscular Hemoglobin Concent 33.9, Red Cell Distribution Width 12.4, Calcium Level 9.3, Total Creatine Kinase 28 L Vital Signs Date Time Temp Pulse Resp B/P (MAP) Pulse Ox O2 Delivery O2 Flow Rate FiO2 08/24/17 12:00 97.7 80 18 112/64 (80) 96 Room Air I&O- Last 24 Hours up to 6 AM 08/25/17 06:00 Intake Total 490 ml Output Total 0 ml Balance 490 ml YUNIOR SUAZO MD Aug 24, 2017 14:49
[2017-08-24 16:00] VITALS: BP 110/76
[2017-08-24] MEDS ORDERED: WARFARIN SOD 5 MG TAB PO SCH (17:00)
[2017-08-24 20:00] VITALS: BP 133/71
[2017-08-24] MEDS: METOPROLOL TART 12.5 MG PER 1/2 TAB PO SCH (20:58)
[2017-08-25] VITALS: BP 117/69
[2017-08-25] MEDS: PERCOCET 5MG/325MG TAB PO PRN ×2 (00:43→10:14)
[2017-08-25 04:45] VITALS: BP 124/80
[2017-08-25 05:42] LABS: MEAN CORPUSCULAR HEMOGLOBIN 29.7 pg (27.0-33.0); MEAN CORPUSCULAR HGB CONC 32.9 g/dl (32.0-36.5); RED CELL DISTRIBUTION WIDTH 12.2 % (11.5-14.5); WHITE BLOOD COUNT 6.5 10^3/uL (4.0-10.0)
[2017-08-25 05:47] LABS: INR 2.53
[2017-08-25 05:56] LABS: ANION GAP 5 MEQ/L (8-16); BLOOD UREA NITROGEN 11 MG/DL (7-18); CALCIUM LEVEL 9.7 MG/DL (8.5-10.1); CARBON DIOXIDE LEVEL 30 MEQ/L (21-32); CHLORIDE LEVEL 101 MEQ/L (98-107); CREATININE FOR GFR 0.86 MG/DL (0.70-1.30); GLOMERULAR FILTRATION RATE > 60.0 (>60); GLUCOSE, FASTING 99 MG/DL (70-105); MAGNESIUM LEVEL 2.3 MG/DL (1.8-2.4); POTASSIUM SERUM 4.9 MEQ/L (3.5-5.1); SODIUM LEVEL 136 MEQ/L (136-145)
[2017-08-25] MEDS ORDERED: SENN1TAB2 PO (07:37)
[2017-08-25] MEDS ORDERED: OXYC1TAB23 PO (07:37)
[2017-08-25] MEDS ORDERED: METO1TAB87 PO (07:37)
[2017-08-25] MEDS ORDERED: COUM1TAB17 PO (07:37)
[2017-08-25 08:17] VITALS: BP 148/92
[2017-08-25] MEDS: PANTOPRAZOLE 40MG TAB (PROTONIX) PO SCH (08:34)
[2017-08-25 08:35] VITALS: BP 148/92
[2017-08-25] MEDS: METOPROLOL TART 12.5 MG PER 1/2 TAB PO SCH (08:35)
[2017-08-25] MEDS ORDERED: PROT1TAB2 PO (09:42)
--- NOTE | 2017-08-25 10:58 | DS.PDOC ---
Discharge Summary General Date of Admission Aug 19, 2017 at 04:41 Date of Discharge 08/25/17 Attending Physician: YUNIOR SUAZO MD Specialist/Consultants Involve: Ritchie HUNT MD Discharge Summary PROCEDURES PERFORMED DURING STAY: None. ADMITTING/DISCHARGE DIAGNOSES: 1. Bilateral pulmonary embolism with likely area of infarction 2. Tobacco abuse 3. Nonsustained ventricular tachycardia 4. Chest wall pain musculoskeletal 5. Recent perforation of the diverticulum status post colostomy 6. GERD 7. Constipation 8. History of T7/T8 compression fracture- will need outpatient follow-up and workup for osteoporosis COMPLICATIONS/CHIEF COMPLAINT: Shortness of breath HISTORY OF PRESENT ILLNESS/HOSPITAL COURSE: This is a 46-year-old male past history of tobacco abuse, perforated diverticulum status post colostomy presents complaining of shortness of breath and chest pain. Patient was found to have bilateral pulmonary embolism and likely development of a pulmonary infarction. Patient was evaluated by surgery as well as pulmonary. Surgery recommended that the patient be bridged to Coumadin. Patient's INR is now between 2-3. He will have a prescription on 08/27/17 INR check with results to be sent to his primary care physician. Patient will need to also follow up closely with his surgeon. Patient's hemodynamically stable. Denies chest pain/shortness of breath/ palpitations. Will be discharged home today. Patient was counseled on tobacco cessation however states he refused nicotine patch at this time and prefers to follow-up with the primary care physician regarding this. He understands that he is at increased risk of further hypercoagulable state as well as development of cancer/COPD. DISCHARGE MEDICATIONS: Please see below. ALLERGIES: Please see below. PHYSICAL EXAMINATION ON DISCHARGE: Vitals: (see below) General: No acute distress, laying comfortably in bed. HEENT: Moist mucous membranes. Neck: No JVD or lymphadenopathy Cardiac: RRR, No murmurs Pulm: Coarse crackles right lower base. No wheezing, rhonchi Abd: NT/ND + BS. Colostomy bag intact. No leakage. Ext: No edema or cyanosis LABORATORY DATA: Please see below. IMAGIN08/19/17 IMPRESSION: Bilateral lower lobe segmental branches pulmonary emboli. Associated multifocal subpleural airspace disease more prominent in the right lower lobe. Findings are suggestive of developing pulmonary infarction. CT abdomen/ pelvis on 08/19/17 IMPRESSION: Groundglass densities in the right lower lobe. Pneumonitis is suspected. Surgical changes of the small bowels. Unremarkable left lower quadrant colostomy. Mild prostatomegaly. Fat containing left inguinal hernia without incarceration. Apparent thickening of the under distended rectosigmoid colon. Lower extremity ultrasound on 08/19/17 IMPRESSION: No evidence of DVT in the lower extremities bilaterally. Echocardiogram 08/19/17 FINDINGS: The study is of rather difficult technical quality. It was only sitting exam. Left ventricle is of normal size and systolic function, I estimate ejection fraction (EF) around 65-70%. Right ventricle does not appear grossly enlarged. Both atria appear normal. Aortic, mitral, tricuspid and pulmonic valve were reasonably well seen and appear grossly normal. No pericardial effusion is noted. Inferior vena cava is at upper limits of normal size but collapses appropriately with respirations. Aortic root is normal. Aortic arch and abdominal aorta were not well seen. Doppler interrogation: There was no significant aortic or mitral valve disease. There is trace tricuspid insufficiency, but quality of TR jet was not sufficient to adequately estimate pulmonary artery pressure. Pulmonic valve is functionally grossly competent. Mitral inflow pattern and tissue Doppler imaging of mitral annulus reveal normal diastolic function of left ventricle. CONCLUSION: 1. The study is of fair technical quality. 2. Normal left ventricular (LV) size and systolic function. Normal diastolic function. 3. No significant valvular disease. 4. Probably mildly elevated central venous pressure. 5. Unable to estimate pulmonary artery pressure. CT lumbar spine 08/19/17 IMPRESSION: Diffuse disc bulge at the L5-S1 level with minimal thecal sac compression. CT thoracic spine 08/19/17 IMPRESSION: 1. Degenerative change as described above. 2. Old T7 and T8 compression fractures with minimal height loss. 3. Right lower lobe atelectasis or infiltrate. PROGNOSIS: Guarded ACTIVITY: As tolerated. DIET: Low-sodium DISCHARGE PLAN/DISPOSITION: DISCHARGE INSTRUCTIONS: 1. Follow-up PCP in 1 week. INR to be done with results to be sent to primary care physician. Return to ED if symptoms worsen or bleeding recurs. Patient will return to work on 09/02/17 with light duty. DISCHARGE CONDITION: Stable. TIME SPENT ON DISCHARGE: Greater than 30 minutes. Vital Signs/I&Os Vital Signs Date Time Temp Pulse Resp B/P (MAP) Pulse Ox O2 Delivery O2 Flow Rate FiO2 08/25/17 10:14 18 Room Air 08/25/17 08:35 82 148/92 08/25/17 08:17 97.4 98 I&O- Last 24 Hours up to 6 AM 08/26/17 06:00 Intake Total 0 ml Output Total 0 ml Balance 0 ml Laboratory Data Labs 24H Laboratory Tests 2 08/25/17 05:19: Prothrombin Time 28.3H, Prothromb Time International Ratio 2.53, Anion Gap 5L, Glomerular Filtration Rate > 60.0, Blood Urea Nitrogen 11, Creatinine 0.86, Sodium Level 136, Potassium Level 4.9, Chloride Level 101, Carbon Dioxide Level 30, Calcium Level 9.7, Magnesium Level 2.3 CBC/BMP Laboratory Tests 08/25/17 05:19 Red Blood Count 4.62, Mean Corpuscular Volume 90.0, Mean Corpuscular Hemoglobin 29.7, Mean Corpuscular Hemoglobin Concent 32.9, Red Cell Distribution Width 12.2 , Calcium Level 9.7 Microbiology Microbiology 08/20/17 Blood Culture - Preliminary, Resulted No Growth after 72 hours. All specime... 08/20/17 Blood Culture - Preliminary, Resulted No Growth after 72 hours. All specime... 08/19/17 Blood Culture - Final, Complete NO GROWTH AFTER 5 DAYS 08/19/17 Blood Culture - Final, Complete NO GROWTH AFTER 5 DAYS Discharge Medications Scheduled Metoprolol Tartrate (Metoprolol Tartrate) 25 Mg Tab, 12.5 MG PO BID Pantoprazole Sodium Sesquihydr (Protonix) 40 Mg Tab, 40 MG PO DAILY Warfarin Sod (Coumadin) 5 Mg Tab, 5 MG PO DAILY@17 Scheduled PRN (Senna Plus 8.6-50 mg) 1 Tab Tab, 1 TAB PO BIDP PRN for constipation Calcium Carbonate (Tums) 500 Mg Chw, 1,500 MG PO Q6H PRN for HEARTBURN, ( Reported) Oxycodone/Acetaminophen (Oxycodone/Acetaminophen 5-325 mg) 1 Tab Tab, 1 TAB PO Q6HP PRN for SEVERE PAIN (PS 8-10) Allergies Coded Allergies: No Known Allergies (Unverified , 05/26/17) YUNIOR SUAZO MD Aug 25, 2017 10:58
== END 2017-08-25 10:18 | disposition home or self-care (01) | DRG 176 ==
LOC: M ED 01:37 → M ED INP 04:41 → M PCU 14:28
PROVIDERS: ADMIT Hospitalist; ATTEND Internal Medicine
DX: I26.99 Other pulmonary embolism without acute cor pulmonale (principal); I47.1 Supraventricular tachycardia; F17.210 Nicotine dependence, cigarettes, uncomplicated; K21.9 Gastro-esophageal reflux disease without esophagitis; R07.89 Other chest pain; K59.00 Constipation, unspecified; Z93.3 Colostomy status; Z79.899 Other long term (current) drug therapy

== ENCOUNTER → 2017-08-27 | Outpatient (CLI) | payer OTHER ==
[~2017-08-27] MED LIST changes: +COUM1TAB17 PO; +METO1TAB87 PO; +OXYC1TAB23 PO; +PROT1TAB2 PO; +SENN1TAB2 PO
[2017-08-27 17:23] LABS: INR 2.1
== END ==
LOC: M WUC 10:42
PROVIDERS: ATTEND Internal Medicine
DX: Z79.01 Long term (current) use of anticoagulants (principal)

== ENCOUNTER → 2017-09-10 | Outpatient (CLI) | payer OTHER ==
[2017-09-10 15:42] LABS: INR 2.83
== END ==
LOC: M WUC 12:30
PROVIDERS: ATTEND Family Medicine
DX: Z79.01 Long term (current) use of anticoagulants (principal); I26.99 Other pulmonary embolism without acute cor pulmonale

== ENCOUNTER → 2017-10-08 | Outpatient (CLI) | payer OTHER ==
[2017-10-08 13:16] LABS: INR 3.51
== END ==
LOC: M SMT 11:12
PROVIDERS: ATTEND Family Medicine
DX: I26.99 Other pulmonary embolism without acute cor pulmonale (principal)

== ENCOUNTER → 2017-10-17 | Outpatient (CLI) | payer OTHER ==
[2017-10-17 12:58] LABS: INR 2.77
== END ==
LOC: M WUC 09:23
PROVIDERS: ATTEND Family Medicine
DX: I26.99 Other pulmonary embolism without acute cor pulmonale (principal)

== ENCOUNTER → 2017-11-03 | Outpatient (CLI) | payer OTHER | LOC: M WUC 09:08 | PROVIDERS: ATTEND Internal Medicine Cardiovascular Disease | DX: R94.31 Abnormal electrocardiogram [ECG] [EKG] (principal); R00.2 Palpitations; I47.2 Ventricular tachycardia ==

== ENCOUNTER → 2017-11-15 | Outpatient (CLI) | payer OTHER ==
[2017-11-15 20:00] LABS: INR 2.27
== END ==
LOC: M WUC 15:55
DX: I26.99 Other pulmonary embolism without acute cor pulmonale (principal)
CPT/HCPCS: 85610

== ENCOUNTER → 2017-12-05 | Outpatient (CLI) | payer OTHER ==
[2017-12-05 19:37] LABS: BASO # 0.1 10^3/uL (0.0-0.2); BASO % 0.8 % (0.0-1.0); EOS # 0.3 10^3/uL (0.0-0.50); EOS % 3.8 % (0.0-3.0); HEMOGLOBIN 17.2 g/dl (14.0-18.0); IMMATURE GRANULOCYTE % 0.3 % (0-0); LYMPH # 2.2 10^3/uL (1.5-4.5); LYMPH % 25.4 % (24.0-44.0); MEAN CORPUSCULAR HEMOGLOBIN 29.8 pg (27.0-33.0); MEAN CORPUSCULAR HGB CONC 34.4 g/dl (32.0-36.5); MEAN CORPUSCULAR VOLUME 86.5 fl (80.0-96.0); MONO # 0.7 10^3/uL (0.0-0.8); MONO % 8.5 % (0.0-5.0); NEUTROPHILS # 5.3 10^3/uL (1.8-7.7); NEUTROPHILS % 61.2 % (36.0-66.0); PLATELET COUNT, AUTOMATED 211 10^3/uL (150-450); RED BLOOD COUNT 5.78 10^6/uL (4.30-6.10); RED CELL DISTRIBUTION WIDTH 13.6 % (11.5-14.5); WHITE BLOOD COUNT 8.7 10^3/uL (4.0-10.0)
[2017-12-05 19:51] LABS: ALBUMIN 4.5 GM/DL (3.2-5.2); ALBUMIN/GLOBULIN RATIO 1.41 (1.00-1.93); ALKALINE PHOSPHATASE 71 U/L (45-117); ALT/SGPT 32 U/L (12-78); ANION GAP 7 MEQ/L (8-16); AST/SGOT 15 U/L (7-37); BILIRUBIN,TOTAL 0.5 MG/DL (0.2-1.0); BLOOD UREA NITROGEN 12 MG/DL (7-18); CALCIUM LEVEL 9.1 MG/DL (8.5-10.1); CARBON DIOXIDE LEVEL 29 MEQ/L (21-32); CHLORIDE LEVEL 102 MEQ/L (98-107); CREATININE FOR GFR 0.93 MG/DL (0.70-1.30); GLOMERULAR FILTRATION RATE > 60.0 (>60); GLUCOSE, FASTING 107 MG/DL (70-105); POTASSIUM SERUM 4.5 MEQ/L (3.5-5.1); SODIUM LEVEL 138 MEQ/L (136-145); TOTAL PROTEIN 7.7 GM/DL (6.4-8.2)
== END ==
LOC: M WUC 16:15
DX: Z01.812 Encounter for preprocedural laboratory examination (principal)

== ENCOUNTER → 2017-12-10 | Outpatient (CLI) | payer OTHER ==
[2017-12-10 13:28] LABS: INR 0.84; PROTHROMBIN TIME 11.5 SECONDS (12.4-14.5)
== END ==
LOC: M WUC 10:15
DX: Z86.711 Personal history of pulmonary embolism (principal)
CPT/HCPCS: 85610

== ENCOUNTER 2017-12-11 09:41 | Day surgery (SDC) | payer OTHER ==
[~2017-12-11 09:41] MED LIST changes: -CIPR-249 PO; -CIPR500T3 PO; -COUM1TAB17 PO; -FLAG500T PO; +LIDOCAINE 2% MDV 20 ML VIAL As Ordered; -METO1TAB87 PO; -METR1TAB66 PO; -NORCOTAB PO; -OXYC1TAB23 PO; +PROPOFOL 200 MG/20 ML VIAL As Ordered; -PROT1TAB2 PO; -SENN1TAB2 PO; -TUMS500C PO; -TYLE500T78 PO; -VARE1TA PO
[2017-12-11] MEDS: NS 1,000 ML IV (10:33)
== END 2017-12-11 11:56 | disposition home or self-care (01) ==
LOC: M OPP 09:41
DX: K64.0 First degree hemorrhoids (principal); K57.30 Diverticulosis of large intestine without perforation or abscess without bleeding; K21.9 Gastro-esophageal reflux disease without esophagitis; R06.83 Snoring; F17.210 Nicotine dependence, cigarettes, uncomplicated; I49.9 Cardiac arrhythmia, unspecified; Z79.01 Long term (current) use of anticoagulants; Z79.899 Other long term (current) drug therapy; Z79.891 Long term (current) use of opiate analgesic; Z86.711 Personal history of pulmonary embolism; Z93.3 Colostomy status
CPT/HCPCS: 44388

== ENCOUNTER 2017-12-13 07:19 | Inpatient (IN) | payer OTHER ==
[2017-12-13] MEDS ORDERED: ERTAPENEM 1 GM INJ (INVanz) (J1335) As Ordered (07:59)
[2017-12-13] MEDS: LR 1,000 ML IV ×4 (08:46→21:15)
[2017-12-13] MEDS ORDERED: ALBUTEROL SULFATE 2.5 MG/0.5 ML INH NEB SOLN As Ordered (09:18)
[2017-12-13] MEDS: ALBUTEROL SULFATE 2.5 MG/0.5 ML INH NEB SOLN INH (09:24)
[2017-12-13] MEDS: ERTAPENEM SODIUM 1 GM in NS 50 ML IV (11:20)
[2017-12-13] MEDS ORDERED: dexameTHASONE 4 MG/ML 1ML VIAL (J1100) As Ordered (12:12)
[2017-12-13] MEDS ORDERED: PROPOFOL 200 MG/20 ML VIAL As Ordered (12:12)
[2017-12-13] MEDS ORDERED: ROCURONIUM BROMIDE 50 MG/5 ML VIAL As Ordered ×3 (12:12→13:34)
[2017-12-13] MEDS ORDERED: fentaNYL 250 MCG/5 ML INJECTION (J3010) As Ordered (12:12)
[2017-12-13] MEDS ORDERED: MIDAZOLAM INJ 2 MG/2 ML VIAL (J2250) As Ordered (12:12)
[2017-12-13] MEDS ORDERED: KETOROLAC 60 MG/2 ML VIAL (J1885) As Ordered (12:12)
[2017-12-13] MEDS ORDERED: LIDOCAINE 2% INJ 100 MG/5 ML SDV (FOR ANES.) As Ordered (12:12)
[2017-12-13] MEDS ORDERED: ONDANSETRON 4MG/2ML VIAL (J2405) As Ordered (12:12)
[2017-12-13] MEDS ORDERED: HYDROmorphone HCL 2 MG/ML 1ML VIAL (J1170) As Ordered (12:12)
[2017-12-13] MEDS ORDERED: METOPROLOL 5 MG/5 ML VIAL As Ordered (13:00)
[2017-12-13] MEDS ORDERED: GLYCOPYRROLATE INJ 0.2 MG/ML 2 ML VIAL As Ordered ×2 (13:08)
[2017-12-13] MEDS ORDERED: NEOSTIGMINE 10 MG/10 ML VIAL (J2710) As Ordered (13:08)
[2017-12-13] MEDS: LIDOCAINE W/EPINEPHRINE 1% 20ML VIAL As Ordered (14:45)
[2017-12-13] MEDS ORDERED: ONDANSETRON 4MG/2ML VIAL (J2405) IV ×2 (15:30→15:45)
[2017-12-13] MEDS ORDERED: fentaNYL 100 MCG/2 ML INJECTION (J3010) IV (15:45)
[2017-12-13] MEDS ORDERED: MORPHINE 10 MG/ML 1ML VIAL IV (15:45)
[2017-12-13] MEDS ORDERED: METOCLOPRAMIDE INJ 10MG/2ML VIAL (J2765) IV (15:45)
[2017-12-13] MEDS: PERCOCET 5MG/325MG TAB PO ×2 (16:10→16:37)
[2017-12-13] MEDS: HEPARIN SOD (PORCINE) 5000 UNITS/ML VIAL SC ×2 (17:24→21:15)
[2017-12-13] MEDS: PANTOPRAZOLE 40MG TAB (PROTONIX) PO (17:25)
[2017-12-13] MEDS: NORCO, ANEXSIA 5/325MG TABLET (HYDROcodone/ACETAMINOPHEN) PO (21:14)
[2017-12-13] MEDS: SENOKOT S TAB PO (21:15)
[2017-12-14] MEDS: MORPHINE 2 MG/ML 1ML SYRINGE IV (01:38)
[2017-12-14] MEDS: NORCO, ANEXSIA 5/325MG TABLET (HYDROcodone/ACETAMINOPHEN) PO (05:43)
[2017-12-14] MEDS: LR 1,000 ML IV ×3 (05:44→22:26)
[2017-12-14] MEDS: HEPARIN SOD (PORCINE) 5000 UNITS/ML VIAL SC ×3 (05:44→21:06)
[2017-12-14 06:11] LABS: HEMATOCRIT 40.2 % (42.0-52.0); HEMOGLOBIN 13.7 g/dl (14.0-18.0); MEAN CORPUSCULAR HEMOGLOBIN 29.5 pg (27.0-33.0); MEAN CORPUSCULAR HGB CONC 34.1 g/dl (32.0-36.5); MEAN CORPUSCULAR VOLUME 86.5 fl (80.0-96.0); PLATELET COUNT, AUTOMATED 152 10^3/uL (150-450); RED BLOOD COUNT 4.65 10^6/uL (4.30-6.10); RED CELL DISTRIBUTION WIDTH 13.5 % (11.5-14.5); WHITE BLOOD COUNT 8.3 10^3/uL (4.0-10.0)
[2017-12-14 06:27] LABS: ANION GAP 6 MEQ/L (8-16); BLOOD UREA NITROGEN 10 MG/DL (7-18); CALCIUM LEVEL 8.3 MG/DL (8.5-10.1); CARBON DIOXIDE LEVEL 29 MEQ/L (21-32); CHLORIDE LEVEL 102 MEQ/L (98-107); CREATININE FOR GFR 0.93 MG/DL (0.70-1.30); GLOMERULAR FILTRATION RATE > 60.0 (>60); GLUCOSE, FASTING 104 MG/DL (70-100); POTASSIUM SERUM 4.2 MEQ/L (3.5-5.1); SODIUM LEVEL 137 MEQ/L (136-145)
[2017-12-14] MEDS: SENOKOT S TAB PO ×2 (08:45→21:06)
[2017-12-14] MEDS: PANTOPRAZOLE 40MG TAB (PROTONIX) PO (08:45)
[2017-12-14] MEDS: KETOROLAC 30 MG/ML VIAL (J1885) IV ×2 (08:45→16:43)
[2017-12-14] MEDS ORDERED: DEXTROMETHORPHAN 5 ML SYRUP (ROBITUSSIN PEDIATRIC COUGH) PO (09:15)
[2017-12-14] MEDS: ERTAPENEM SODIUM 1 GM in APPROPRIATE DILUENT 1 EA IV (11:39)
[2017-12-14] MEDS: DEXTROMETHORPHAN 60MG/10ML SUSP 90ML BTL(DELSYM) PO (11:39)
[2017-12-14] MEDS: LEVALBUTEROL 1.25 MG/0.5 ML CONCENTRATE NEB NEB ×2 (13:45→19:51)
[2017-12-14] MEDS: ACETAMINOPHEN TAB 650MG DOSE (2X325MG) PO ×2 (16:44→21:05)
[2017-12-15] MEDS: KETOROLAC 30 MG/ML VIAL (J1885) IV ×3 (00:24→21:52)
[2017-12-15] MEDS: DEXTROMETHORPHAN 60MG/10ML SUSP 90ML BTL(DELSYM) PO (00:25)
[2017-12-15] MEDS: LEVALBUTEROL 1.25 MG/0.5 ML CONCENTRATE NEB NEB ×4 (01:04→21:08)
[2017-12-15] MEDS: HEPARIN SOD (PORCINE) 5000 UNITS/ML VIAL SC ×3 (06:01→21:52)
[2017-12-15] MEDS: ACETAMINOPHEN TAB 650MG DOSE (2X325MG) PO (06:02)
[2017-12-15 06:13] LABS: HEMATOCRIT 41.5 % (42.0-52.0); MEAN CORPUSCULAR HEMOGLOBIN 29.7 pg (27.0-33.0); MEAN CORPUSCULAR HGB CONC 33.7 g/dl (32.0-36.5); MEAN CORPUSCULAR VOLUME 87.9 fl (80.0-96.0); PLATELET COUNT, AUTOMATED 144 10^3/uL (150-450); RED BLOOD COUNT 4.72 10^6/uL (4.30-6.10); RED CELL DISTRIBUTION WIDTH 13.3 % (11.5-14.5); WHITE BLOOD COUNT 5.6 10^3/uL (4.0-10.0)
[2017-12-15] MEDS: LR 1,000 ML IV (06:33)
[2017-12-15 06:39] LABS: ANION GAP 7 MEQ/L (8-16); BLOOD UREA NITROGEN 7 MG/DL (7-18); CALCIUM LEVEL 8.2 MG/DL (8.5-10.1); CARBON DIOXIDE LEVEL 30 MEQ/L (21-32); CHLORIDE LEVEL 103 MEQ/L (98-107); CREATININE FOR GFR 0.85 MG/DL (0.70-1.30); GLOMERULAR FILTRATION RATE > 60.0 (>60); GLUCOSE, FASTING 99 MG/DL (70-100); MAGNESIUM LEVEL 1.9 MG/DL (1.8-2.4); POTASSIUM SERUM 3.7 MEQ/L (3.5-5.1); SODIUM LEVEL 140 MEQ/L (136-145)
[2017-12-15] MEDS: SENOKOT S TAB PO ×2 (08:45→21:52)
[2017-12-15] MEDS: PANTOPRAZOLE 40MG TAB (PROTONIX) PO (08:45)
[2017-12-15] MEDS: NORCO, ANEXSIA 5/325MG TABLET (HYDROcodone/ACETAMINOPHEN) PO (13:45)
[2017-12-16] MEDS: LEVALBUTEROL 1.25 MG/0.5 ML CONCENTRATE NEB NEB ×4 (02:00→19:57)
[2017-12-16 06:11] LABS: HEMATOCRIT 39.8 % (42.0-52.0); HEMOGLOBIN 13.8 g/dl (14.0-18.0); MEAN CORPUSCULAR HEMOGLOBIN 29.9 pg (27.0-33.0); MEAN CORPUSCULAR HGB CONC 34.7 g/dl (32.0-36.5); MEAN CORPUSCULAR VOLUME 86.3 fl (80.0-96.0); PLATELET COUNT, AUTOMATED 153 10^3/uL (150-450); RED BLOOD COUNT 4.61 10^6/uL (4.30-6.10); RED CELL DISTRIBUTION WIDTH 13.2 % (11.5-14.5); WHITE BLOOD COUNT 3.8 10^3/uL (4.0-10.0)
[2017-12-16] MEDS: HEPARIN SOD (PORCINE) 5000 UNITS/ML VIAL SC ×3 (06:13→21:36)
[2017-12-16 06:31] LABS: ANION GAP 7 MEQ/L (8-16); BLOOD UREA NITROGEN 6 MG/DL (7-18); CALCIUM LEVEL 8.5 MG/DL (8.5-10.1); CARBON DIOXIDE LEVEL 30 MEQ/L (21-32); CHLORIDE LEVEL 104 MEQ/L (98-107); CREATININE FOR GFR 0.79 MG/DL (0.70-1.30); GLOMERULAR FILTRATION RATE > 60.0 (>60); GLUCOSE, FASTING 103 MG/DL (70-100); POTASSIUM SERUM 3.7 MEQ/L (3.5-5.1); SODIUM LEVEL 141 MEQ/L (136-145)
[2017-12-16] MEDS: PANTOPRAZOLE 40MG TAB (PROTONIX) PO (09:25)
[2017-12-16] MEDS: SENOKOT S TAB PO ×2 (09:26→21:38)
[2017-12-16] MEDS: NORCO, ANEXSIA 5/325MG TABLET (HYDROcodone/ACETAMINOPHEN) PO ×2 (09:41→21:39)
[2017-12-16] MEDS ORDERED: ERTAPENEM SODIUM 1 GM in NS 50 ML IV (11:00)
[2017-12-16] MEDS: INFLUENZA QUADRIVALENT PF VACCINE 0.5ML SYRINGE (90686) IM (11:26)
[2017-12-16] MEDS: MEROPENEM INJ 1 GM in APPROPRIATE DILUENT 1 EA IV (11:27)
[2017-12-16] MEDS: DEXTROMETHORPHAN 60MG/10ML SUSP 90ML BTL(DELSYM) PO (22:34)
[2017-12-17] MEDS: LEVALBUTEROL 1.25 MG/0.5 ML CONCENTRATE NEB NEB ×2 (02:00→08:38)
[2017-12-17] MEDS: NORCO, ANEXSIA 5/325MG TABLET (HYDROcodone/ACETAMINOPHEN) PO (05:43)
[2017-12-17] MEDS: HEPARIN SOD (PORCINE) 5000 UNITS/ML VIAL SC (05:43)
[2017-12-17 06:56] LABS: HEMATOCRIT 42.3 % (42.0-52.0); HEMOGLOBIN 14.4 g/dl (14.0-18.0); MEAN CORPUSCULAR HEMOGLOBIN 29.6 pg (27.0-33.0); RED BLOOD COUNT 4.86 10^6/uL (4.30-6.10); RED CELL DISTRIBUTION WIDTH 13.2 % (11.5-14.5); WHITE BLOOD COUNT 3.7 10^3/uL (4.0-10.0)
[2017-12-17 07:07] LABS: ANION GAP 8 MEQ/L (8-16); BLOOD UREA NITROGEN 10 MG/DL (7-18); CALCIUM LEVEL 8.5 MG/DL (8.5-10.1); CARBON DIOXIDE LEVEL 27 MEQ/L (21-32); CHLORIDE LEVEL 104 MEQ/L (98-107); CREATININE FOR GFR 0.77 MG/DL (0.70-1.30); GLOMERULAR FILTRATION RATE > 60.0 (>60); GLUCOSE, FASTING 104 MG/DL (70-100); POTASSIUM SERUM 3.9 MEQ/L (3.5-5.1); SODIUM LEVEL 139 MEQ/L (136-145)
[2017-12-17 07:32] LABS: POS COUNT POS FLAG
[2017-12-17] MEDS: PANTOPRAZOLE 40MG TAB (PROTONIX) PO (10:09)
[2017-12-17] MEDS: SENOKOT S TAB PO (10:10)
== END 2017-12-17 11:20 | disposition home or self-care (01) | DRG 346 ==
LOC: M OR 07:19 → M MSPAV 16:44
PROC: 0DSN4ZZ Reposition Sigmoid Colon, Percutaneous Endoscopic Approach (ICD-10-PCS; principal; 2017-12-13 10:45)
DX: Z43.3 Encounter for attention to colostomy (principal); Z86.711 Personal history of pulmonary embolism; Z79.01 Long term (current) use of anticoagulants; Z79.899 Other long term (current) drug therapy; F17.210 Nicotine dependence, cigarettes, uncomplicated; K21.9 Gastro-esophageal reflux disease without esophagitis

== ENCOUNTER → 2018-09-18 | Outpatient (CLI) | payer OTHER ==
[2018-09-18 08:54] LABS: BASO # 0.1 10^3/uL (0.0-0.2); BASO % 1.1 % (0.0-1.0); EOS # 0.2 10^3/uL (0.0-0.50); EOS % 3.5 % (0.0-3.0); HEMATOCRIT 49.1 % (42.0-52.0); HEMOGLOBIN 17.2 g/dl (13.5-17.5); IMMATURE GRANULOCYTE % 0.5 % (0-3.0); LYMPH # 1.5 10^3/uL (1.5-4.5); LYMPH % 23.8 % (24.0-44.0); MEAN CORPUSCULAR VOLUME 88.5 fl (80.0-96.0); MONO # 0.6 10^3/uL (0.0-0.8); NEUTROPHILS # 3.8 10^3/uL (1.8-7.7); NEUTROPHILS % 61.1 % (36.0-66.0); PLATELET COUNT, AUTOMATED 223 10^3/uL (150-450); RED BLOOD COUNT 5.55 10^6/uL (4.30-6.10); RED CELL DISTRIBUTION WIDTH 11.9 % (11.5-14.5); WHITE BLOOD COUNT 6.2 10^3/uL (4.0-10.0)
[2018-09-18 09:30] LABS: ALBUMIN 3.9 GM/DL (3.2-5.2); ALKALINE PHOSPHATASE 69 U/L (45-117); ALT/SGPT 39 U/L (12-78); ANION GAP 7 MEQ/L (8-16); AST/SGOT 17 U/L (7-37); BILIRUBIN,TOTAL 0.5 MG/DL (0.2-1.0); BLOOD UREA NITROGEN 15 MG/DL (7-18); CALCIUM LEVEL 9.4 MG/DL (8.5-10.1); CARBON DIOXIDE LEVEL 28 MEQ/L (21-32); CHLORIDE LEVEL 103 MEQ/L (98-107); CHOLESTEROL LEVEL 213 MG/DL (<200); CHOLESTEROL RISK RATIO 4.953 (<5); CREATININE FOR GFR 0.93 MG/DL (0.70-1.30); FREE T4 0.99 NG/DL (0.76-1.46); GLOMERULAR FILTRATION RATE > 60.0 (>60); GLUCOSE, FASTING 96 MG/DL (70-100); HDL CHOLESTEROL 43 MG/DL (>40); LDL CHOLESTEROL 118 MG/DL (<100); NON-HDL-C 170 MG/DL; POTASSIUM SERUM 4.6 MEQ/L (3.5-5.1); SODIUM LEVEL 138 MEQ/L (136-145); TOTAL PROTEIN 6.9 GM/DL (6.4-8.2); TRIGLYCERIDES LEVEL 259 MG/DL (<150)
== END ==
LOC: M WUC 08:21
DX: Z13.29 Encounter for screening for other suspected endocrine disorder (principal); Z13.0 Encounter for screening for diseases of the blood and blood-forming organs and certain disorders involving the immune mechanism; Z13.220 Encounter for screening for lipoid disorders

== ENCOUNTER → 2019-04-19 | Outpatient (CLI) | payer OTHER ==
[~2019-04-19] MED LIST changes: +CIPR-249 PO; +CIPR500T3 PO; +COUM1TAB17 PO; +FLAG500T PO; +HYDR-3715 PO; -LIDOCAINE 2% MDV 20 ML VIAL As Ordered; +METO1TAB87 PO; +METR-265 PO; +OXYC1TAB23 PO; -PROPOFOL 200 MG/20 ML VIAL As Ordered; +PROT1TAB2 PO; +SENN1TAB40 PO; +TUMS500C PO; +TYLE500T78 PO; +VARE1TA PO
--- NOTE | 2019-04-19 11:53 | REP ---
Clinical: pain Technique: AP, lateral, bilateral oblique views right wrist. Findings: The carpal bones, surrounding osseous structures, soft tissues, and joint spaces are normal. There is no evidence for acute fracture or dislocation. No subcutaneous emphysema or radiodense foreign body. Impression: Normal right wrist series. Electronically Signed by Lit Solano MD 04/19/2019 11:45 A
== END ==
LOC: M WUC 11:30
PROVIDERS: ATTEND Physician Assistant
DX: M25.531 Pain in right wrist (principal)

== ENCOUNTER → 2019-06-01 | Outpatient (CLI) | payer OTHER ==
[~2019-06-01] MED LIST changes: +SENN-53 PO; -SENN1TAB40 PO
--- NOTE | 2019-06-01 12:56 | REP ---
Left shoulder three views : There is no fracture or dislocation. Mineralization and joint spaces are normal. There are no calcifications or foreign bodies. Impression: Negative left shoulder . Electronically Signed by Mervin Candelaria MD 06/01/2019 12:47 P
== END ==
LOC: M WUC 11:29
PROVIDERS: ATTEND Physician Assistant
DX: M25.512 Pain in left shoulder (principal)

== ENCOUNTER → 2020-01-07 | Outpatient (CLI) | payer OTHER ==
--- NOTE | 2020-01-07 10:21 | REP ---
UNILATERAL RIGHT RIBS SERIES: Seven views including PA chest. HISTORY: Contusion of the right back chest wall. COMPARISON CHEST X-RAY: December 16, 2017. FINDINGS: PA chest radiograph is normal. There is no evidence of pneumothorax or hydrothorax. Mediastinum is not widened. Heart size is normal. Lung simmons are clear. Multiple views of the right ribcage demonstrate a nondisplaced fracture of the posterolateral right 11th rib. There is also a contour deformity of the posterolateral 12th rib although this is not definitely acute. No other acute rib fractures seen. IMPRESSION: Right posterolateral 11th rib fracture nondisplaced. Question injury to the adjacent right posterior 10th rib. Electronically Signed by Hernando Walters MD 01/07/2020 10:31 A
== END ==
LOC: M WUC 09:02
PROVIDERS: ATTEND Physician Assistant
DX: S22.31XA Fracture of one rib, right side, initial encounter for closed fracture (principal)

== ENCOUNTER → 2020-09-27 | Outpatient (CLI) | payer OTHER ==
[2020-09-27 13:06] LABS: BASO # 0.1 10^3/uL (0.0-0.2); EOS # 0.2 10^3/uL (0.0-0.5); HEMATOCRIT 50.2 % (42.0-52.0); LYMPH # 1.5 10^3/uL (1.5-5.0); LYMPH % 20.4 % (24.0-44.0); MEAN CORPUSCULAR HEMOGLOBIN 31.1 pg (27.0-33.0); MEAN CORPUSCULAR HGB CONC 33.9 g/dl (32.0-36.5); MEAN CORPUSCULAR VOLUME 91.9 fl (80.0-96.0); MONO # 0.7 10^3/uL (0.0-0.8); MONO % 9.9 % (0.0-5.0); NEUTROPHILS # 4.7 10^3/uL (1.5-8.5); NEUTROPHILS % 64.6 % (36.0-66.0); PLATELET COUNT, AUTOMATED 220 10^3/uL (150-450); RED BLOOD COUNT 5.46 10^6/uL (4.30-6.10); WHITE BLOOD COUNT 7.3 10^3/uL (4.0-10.0)
[2020-09-27 13:44] LABS: ALT/SGPT 32 U/L (12-78); BILIRUBIN,TOTAL 0.9 MG/DL (0.2-1.0); BLOOD UREA NITROGEN 14 MG/DL (7-18); CALCIUM LEVEL 9.3 MG/DL (8.5-10.1); CARBON DIOXIDE LEVEL 29 MEQ/L (21-32); CHLORIDE LEVEL 104 MEQ/L (98-107); CHOLESTEROL LEVEL 213 MG/DL (<200); CHOLESTEROL RISK RATIO 4.733 (<5); CREATININE FOR GFR 1.01 MG/DL (0.70-1.30); GLOMERULAR FILTRATION RATE > 60.0 (>60); GLUCOSE, FASTING 102 MG/DL (70-100); HDL CHOLESTEROL 45 MG/DL (>40); LDL CHOLESTEROL 126 MG/DL (<100); NON-HDL-C 168 MG/DL; POTASSIUM SERUM 4.5 MEQ/L (3.5-5.1); SODIUM LEVEL 137 MEQ/L (136-145); THYROID STIMULATING HORMONE 0.712 uIU/ML (0.358-3.740); TOTAL PROTEIN 6.9 GM/DL (6.4-8.2); TRIGLYCERIDES LEVEL 211 MG/DL (<150)
[2020-09-27 16:19] LABS: HEMOGLOBIN A1c 5.4 %
== END ==
LOC: M WUC 09:15
PROVIDERS: ATTEND Family Medicine
DX: Z13.220 Encounter for screening for lipoid disorders (principal); Z13.0 Encounter for screening for diseases of the blood and blood-forming organs and certain disorders involving the immune mechanism; Z13.29 Encounter for screening for other suspected endocrine disorder

== ENCOUNTER → 2021-10-04 | Outpatient (CLI) | payer OTHER ==
[2021-10-04 09:29] LABS: BASO # 0.1 10^3/uL (0.0-0.2); BASO % 0.7 % (0.0-1.0); EOS # 0.2 10^3/uL (0.0-0.5); EOS % 2.7 % (0.0-3.0); HEMATOCRIT 52.1 % (42.0-52.0); HEMOGLOBIN 17.7 g/dl (13.5-17.5); LYMPH # 1.4 10^3/uL (1.5-5.0); LYMPH % 16.6 % (24.0-44.0); MEAN CORPUSCULAR HEMOGLOBIN 30.9 pg (27.0-33.0); MEAN CORPUSCULAR VOLUME 91.1 fl (80.0-96.0); MONO # 0.8 10^3/uL (0.0-0.8); MONO % 10.2 % (2.0-8.0); NEUTROPHILS # 5.6 10^3/uL (1.5-8.5); NEUTROPHILS % 68.6 % (36.0-66.0); PLATELET COUNT, AUTOMATED 241 10^3/uL (150-450); RED BLOOD COUNT 5.72 10^6/uL (4.30-6.10); WHITE BLOOD COUNT 8.2 10^3/uL (4.0-10.0)
[2021-10-04 10:36] LABS: ALT/SGPT 41 U/L (12-78); BILIRUBIN,TOTAL 0.7 MG/DL (0.2-1.0); BLOOD UREA NITROGEN 16 MG/DL (7-18); CALCIUM LEVEL 9.2 MG/DL (8.5-10.1); CARBON DIOXIDE LEVEL 29 MEQ/L (21-32); CHLORIDE LEVEL 105 MEQ/L (98-107); CHOLESTEROL LEVEL 213 MG/DL (<200); CHOLESTEROL RISK RATIO 5.195 (<5); GLOMERULAR FILTRATION RATE > 60.0 (>60); GLUCOSE, FASTING 93 MG/DL (70-100); HDL CHOLESTEROL 41 MG/DL (>40); LDL CHOLESTEROL 130 MG/DL (<100); NON-HDL-C 172 MG/DL; POTASSIUM SERUM 4.6 MEQ/L (3.5-5.1); SODIUM LEVEL 138 MEQ/L (136-145); TOTAL PROTEIN 7.1 GM/DL (6.4-8.2); TRIGLYCERIDES LEVEL 212 MG/DL (<150)
== END ==
LOC: M WUC 08:13
PROVIDERS: ATTEND Family Medicine
DX: Z13.29 Encounter for screening for other suspected endocrine disorder (principal); Z13.0 Encounter for screening for diseases of the blood and blood-forming organs and certain disorders involving the immune mechanism; Z13.220 Encounter for screening for lipoid disorders; Z12.5 Encounter for screening for malignant neoplasm of prostate

== ENCOUNTER → 2021-10-06 | Outpatient (CLI) | payer OTHER ==
[~2021-10-06] MED LIST changes: +ISOVUE-370 76% 100ML VIAL ONE
--- NOTE | 2021-10-06 14:54 | REP ---
INDICATION: COPD COMPARISON: 08/19/2017 CT angio chest TECHNIQUE: Standard helical technique after the intravenous administration of 100 cc Isovue 370 FINDINGS: There is no mediastinal or hilar adenopathy. There are no pleural or pericardial effusions. The imaged upper abdomen is within normal limits. The imaged osseous structures are stable and intact. Evaluation of the lung simmons shows 2 focal pleural based asymmetric densities in the right lower lobe which have actually decreased compared to the prior exam. No new abnormal nodules, masses, or opacities have developed. IMPRESSION: Chronic right lung base scarring as described above. No acute abnormalities are identified. <Electronically signed by Corwin Dash > 10/06/21 [id number]
== END ==
LOC: M PLAIMG 13:11
PROVIDERS: ATTEND Family Medicine
DX: J44.9 Chronic obstructive pulmonary disease, unspecified (principal)

== ENCOUNTER → 2021-12-15 | Outpatient (CLI) | payer OTHER ==
[~2021-12-15] MED LIST changes: +ALBU8.5H INH; +BREO1INH INH; -ISOVUE-370 76% 100ML VIAL ONE; +PANT20TA6 PO
== END ==
LOC: M LABSMTC 10:00
PROVIDERS: ATTEND Anesthesiology
DX: Z01.812 Encounter for preprocedural laboratory examination (principal); Z20.822 Contact with and (suspected) exposure to COVID-19

== ENCOUNTER 2021-12-20 06:51 | Day surgery (SDC) | payer OTHER ==
[~2021-12-20] VITALS: Ht 172.7 cm; Wt 85.7 kg
[~2021-12-20 06:51] MED LIST changes: +NS 1,000 ML IV ONE
[2021-12-20] MEDS ORDERED: propofoL 200 MG/20 ML VIAL As Ordered ONE (06:54)
[2021-12-20] MEDS ORDERED: LIDOCAINE 2% 100MG/5ML SDV (FOR ANES.) As Ordered ONE (06:54)
[2021-12-20 08:12] VITALS: BP 139/85
== END 2021-12-20 08:16 | disposition home or self-care (01) ==
LOC: M OPP 06:51
PROVIDERS: ATTEND Surgery
DX: D12.5 Benign neoplasm of sigmoid colon (principal); K57.30 Diverticulosis of large intestine without perforation or abscess without bleeding; K64.1 Second degree hemorrhoids; K92.1 Melena; Z79.899 Other long term (current) drug therapy; F17.210 Nicotine dependence, cigarettes, uncomplicated

== ENCOUNTER → 2022-11-19 | Outpatient (CLI) | payer OTHER ==
[~2022-11-19] MED LIST changes: -NS 1,000 ML IV ONE
== END ==
LOC: M SLEEP HO 14:20
PROVIDERS: ATTEND Family Medicine
DX: R06.83 Snoring (principal); J44.9 Chronic obstructive pulmonary disease, unspecified

== ENCOUNTER → 2023-07-24 | Outpatient (CLI) | payer OTHER ==
[2023-07-24 10:37] LABS: BASO # 0.1 10^3/uL (0.0-0.2); BASO % 1.4 % (0.0-1.0); EOS # 0.3 10^3/uL (0.0-0.5); EOS % 3.9 % (0.0-3.0); HEMATOCRIT 48.4 % (42.0-52.0); HEMOGLOBIN 16.5 g/dl (13.5-17.5); LYMPH # 1.7 10^3/uL (1.5-5.0); LYMPH % 27.2 % (24.0-44.0); MEAN CORPUSCULAR HEMOGLOBIN 30.2 pg (27.0-33.0); MEAN CORPUSCULAR HGB CONC 34.1 g/dl (32.0-36.5); MEAN CORPUSCULAR VOLUME 88.5 fl (80.0-96.0); MONO # 0.7 10^3/uL (0.0-0.8); NEUTROPHILS # 3.5 10^3/uL (1.5-8.5); NEUTROPHILS % 55.2 % (36.0-66.0); PLATELET COUNT, AUTOMATED 223 10^3/uL (150-450); RED BLOOD COUNT 5.47 10^6/uL (4.30-6.10); WHITE BLOOD COUNT 6.4 10^3/uL (4.0-10.0)
[2023-07-24 11:06] LABS: ALBUMIN 3.9 G/DL (3.2-5.2); ALKALINE PHOSPHATASE 63 U/L (46-116); ALT/SGPT 55 U/L (7.0-40); AST/SGOT 21 U/L (<34); BILIRUBIN,TOTAL 0.5 MG/DL (0.3-1.2); BLOOD UREA NITROGEN 12 MG/DL (9-23); CALCIUM LEVEL 8.8 MG/DL (8.5-10.1); CARBON DIOXIDE LEVEL 27 MMOL/L (20-31); CHLORIDE LEVEL 103 MMOL/L (98-107); CHOLESTEROL LEVEL 225 MG/DL (<200); CHOLESTEROL RISK RATIO 5.44 (<5); CREATININE FOR GFR 0.97 MG/DL (0.70-1.30); FREE T4 0.97 NG/DL (0.89-1.76); GLOMERULAR FILTRATION RATE > 60.0 (>56); GLUCOSE, FASTING 83 MG/DL (60-100); HDL CHOLESTEROL 41.3 MG/DL (>40); LDL CHOLESTEROL 115.3 MG/DL (<100); NON-HDL-C 183.7 MG/DL; POTASSIUM SERUM 4.3 MMOL/L (3.5-5.1); SODIUM LEVEL 136 MMOL/L (136-145); THYROID STIMULATING HORMONE 1.376 uIU/ML (0.55-4.78); TRIGLYCERIDES LEVEL 342 MG/DL (<150)
[2023-07-25 18:07] LABS: PSA TOTAL 0.7 ng/mL (0.0-4.0)
== END ==
LOC: M WUC 08:36
PROVIDERS: ATTEND Nurse Practitioner Adult Health
DX: Z13.29 Encounter for screening for other suspected endocrine disorder (principal); Z13.0 Encounter for screening for diseases of the blood and blood-forming organs and certain disorders involving the immune mechanism; Z13.220 Encounter for screening for lipoid disorders; Z12.5 Encounter for screening for malignant neoplasm of prostate

== ENCOUNTER → 2024-05-01 | Outpatient (CLI) | payer OTHER ==
[2024-05-01 12:13] LABS: BASO # 0.1 10^3/uL (0.0-0.2); BASO % 0.9 % (0.0-1.0); EOS # 0.3 10^3/uL (0.0-0.5); EOS % 3.7 % (0.0-3.0); HEMATOCRIT 48.1 % (42.0-52.0); HEMOGLOBIN 15.7 g/dl (13.5-17.5); LYMPH # 1.6 10^3/uL (1.5-5.0); LYMPH % 18.8 % (24.0-44.0); MEAN CORPUSCULAR HEMOGLOBIN 30.3 pg (27.0-33.0); MEAN CORPUSCULAR HGB CONC 32.6 g/dl (32.0-36.5); MEAN CORPUSCULAR VOLUME 92.9 fl (80.0-96.0); MONO % 11.5 % (2.0-8.0); NEUTROPHILS # 5.6 10^3/uL (1.5-8.5); NEUTROPHILS % 64.3 % (36.0-66.0); PLATELET COUNT, AUTOMATED 275 10^3/uL (150-450); RED BLOOD COUNT 5.18 10^6/uL (4.30-6.10); WHITE BLOOD COUNT 8.7 10^3/uL (4.0-10.0)
[2024-05-01 12:37] LABS: ALBUMIN 3.6 G/DL (3.2-5.2); ALKALINE PHOSPHATASE 60 U/L (46-116); ALT/SGPT 31 U/L (7.0-40); AST/SGOT 11 U/L (<34); BLOOD UREA NITROGEN 14 MG/DL (9-23); CALCIUM LEVEL 8.7 MG/DL (8.5-10.1); CARBON DIOXIDE LEVEL 28 MMOL/L (20-31); CHLORIDE LEVEL 101 MMOL/L (98-107); CHOLESTEROL LEVEL 171 MG/DL (<200); CHOLESTEROL RISK RATIO 4.18 (<5); GLOMERULAR FILTRATION RATE > 60.0 (>56); GLUCOSE, FASTING 88 MG/DL (60-100); HDL CHOLESTEROL 40.9 MG/DL (>40); LDL CHOLESTEROL 108.7 MG/DL (<100); NON-HDL-C 130.1 MG/DL; POTASSIUM SERUM 4.4 MMOL/L (3.5-5.1); PSA SCREENING 0.39 NG/ML (< 4.00); SODIUM LEVEL 137 MMOL/L (136-145); TOTAL PROTEIN 6.6 G/DL (5.7-8.2); TRIGLYCERIDES LEVEL 107 MG/DL (<150)
[2024-05-01 12:41] LABS: FREE T4 1.13 NG/DL (0.89-1.76); THYROID STIMULATING HORMONE 1.196 uIU/ML (0.55-4.78)
== END ==
LOC: M WUC 08:35
PROVIDERS: ATTEND Family Medicine
DX: I10 Essential (primary) hypertension (principal); E78.2 Mixed hyperlipidemia; Z12.5 Encounter for screening for malignant neoplasm of prostate
CPT/HCPCS: 36415; 80053; 80061; 84439; 84443; 85025; G0103

== ENCOUNTER → 2024-05-08 | Outpatient (CLI) | payer OTHER | LOC: M RAD 09:31 | PROVIDERS: ATTEND Family Medicine | DX: J44.9 Chronic obstructive pulmonary disease, unspecified (principal) ==

== ENCOUNTER → 2024-05-15 | Outpatient (REF) | payer OTHER | LOC: M LABWUC 11:10 | PROVIDERS: ATTEND Nurse Practitioner Adult Health | DX: R68.82 Decreased libido (principal) ==

== ENCOUNTER → 2024-08-07 | Outpatient (CLI) | payer OTHER | LOC: M PLAIMG 13:18 | PROVIDERS: ATTEND Physician Assistant | DX: R91.8 Other nonspecific abnormal finding of lung field (principal) ==

== ENCOUNTER → 2025-01-15 | Outpatient (CLI) | payer OTHER ==
[2025-01-15 10:26] LABS: BASO # 0.1 10^3/uL (0.0-0.2); BASO % 0.7 % (0.0-1.0); EOS # 0.1 10^3/uL (0.0-0.5); EOS % 1.9 % (0.0-3.0); HEMATOCRIT 47.9 % (42.0-52.0); HEMOGLOBIN 16.6 g/dl (13.5-17.5); LYMPH # 1.3 10^3/uL (1.5-5.0); LYMPH % 19.6 % (24.0-44.0); MEAN CORPUSCULAR HEMOGLOBIN 31.1 pg (27.0-33.0); MEAN CORPUSCULAR HGB CONC 34.7 g/dl (32.0-36.5); MEAN CORPUSCULAR VOLUME 89.7 fl (80.0-96.0); MONO # 0.7 10^3/uL (0.0-0.8); MONO % 10.3 % (2.0-8.0); NEUTROPHILS # 4.6 10^3/uL (1.5-8.5); NEUTROPHILS % 66.8 % (36.0-66.0); PLATELET COUNT, AUTOMATED 228 10^3/uL (150-450); RED BLOOD COUNT 5.34 10^6/uL (4.30-6.10); WHITE BLOOD COUNT 6.8 10^3/uL (4.0-10.0)
[2025-01-15 10:50] LABS: PSA SCREENING 0.74 NG/ML (< 4.00)
[2025-01-15 10:54] LABS: ALBUMIN 3.8 G/DL (3.2-5.2); ALKALINE PHOSPHATASE 66 U/L (40-129); ALT/SGPT 61 U/L (7.0-40); AST/SGOT 23 U/L (<34); BILIRUBIN,TOTAL 0.5 MG/DL (0.3-1.2); BLOOD UREA NITROGEN 12 MG/DL (9-23); CARBON DIOXIDE LEVEL 26 MMOL/L (20-31); CHLORIDE LEVEL 107 MMOL/L (98-107); CHOLESTEROL LEVEL 223 MG/DL (<200); CHOLESTEROL RISK RATIO 5.51 (<5); CREATININE FOR GFR 0.89 MG/DL (0.70-1.30); GLOMERULAR FILTRATION RATE > 60.0 (>56); GLUCOSE, FASTING 93 MG/DL (60-100); HDL CHOLESTEROL 40.4 MG/DL (>40); LDL CHOLESTEROL 153.2 MG/DL (<100); NON-HDL-C 182.6 MG/DL; POTASSIUM SERUM 4.4 MMOL/L (3.5-5.1); SODIUM LEVEL 140 MMOL/L (136-145); THYROID STIMULATING HORMONE 0.909 uIU/ML (0.55-4.78); TOTAL PROTEIN 6.9 G/DL (5.7-8.2); TRIGLYCERIDES LEVEL 147 MG/DL (<150)
[2025-01-15 10:56] LABS: FREE T4 1.23 NG/DL (0.89-1.76)
== END ==
LOC: M WUC 08:36
PROVIDERS: ATTEND Nurse Practitioner Adult Health
DX: Z12.5 Encounter for screening for malignant neoplasm of prostate (principal); E78.2 Mixed hyperlipidemia; I10 Essential (primary) hypertension

== ENCOUNTER → 2025-06-30 | Outpatient (CLI) | payer OTHER | LOC: M SLEEP HO 11:50 | PROVIDERS: ATTEND Physician Assistant | DX: G47.33 Obstructive sleep apnea (adult) (pediatric) (principal) ==

== ENCOUNTER → 2025-09-24 | Outpatient (CLI) | payer OTHER ==
[2025-09-24 14:35] LABS: BASO # 0.1 10^3/uL (0.0-0.2); BASO % 0.8 % (0.0-1.0); EOS # 0.2 10^3/uL (0.0-0.5); EOS % 2.1 % (0.0-3.0); LYMPH # 1.5 10^3/uL (1.5-5.0); LYMPH % 17.2 % (24.0-44.0); MONO # 0.8 10^3/uL (0.0-0.8); MONO % 9.7 % (2.0-8.0); NEUTROPHILS # 6.0 10^3/uL (1.5-8.5); NEUTROPHILS % 69.3 % (36.0-66.0); PLATELET COUNT, AUTOMATED 262 10^3/uL (150-450)
[2025-09-24 14:44] LABS: ESTIMATED AVERAGE GLUCOSE 120.0 MG/DL (60-110)
[2025-09-24 15:02] LABS: ALT/SGPT 51.0 U/L (7.0-40); AST/SGOT 26.0 U/L (<34); CALCIUM LEVEL 9.5 MG/DL (8.5-10.1); CARBON DIOXIDE LEVEL 28.0 MMOL/L (20-31); CHLORIDE LEVEL 103.0 MMOL/L (98-107); CHOLESTEROL LEVEL 154.0 MG/DL (<200); CHOLESTEROL RISK RATIO 3.73 (<5); CREATININE FOR GFR 1.1 MG/DL (0.70-1.30); GLOMERULAR FILTRATION RATE 80.3 (>56); LDL CHOLESTEROL 80.6 MG/DL (<100); NON-HDL-C 112.8 MG/DL; POTASSIUM SERUM 4.5 MMOL/L (3.5-5.1); SODIUM LEVEL 140.0 MMOL/L (136-145); TRIGLYCERIDES LEVEL 161.0 MG/DL (<150)
[2025-09-24 15:05] LABS: FREE T4 1.11 NG/DL (0.89-1.76)
== END ==
LOC: M WUC 08:36
PROVIDERS: ATTEND Nurse Practitioner Adult Health
DX: I10 Essential (primary) hypertension (principal); E78.2 Mixed hyperlipidemia; G47.33 Obstructive sleep apnea (adult) (pediatric)

== ENCOUNTER → 2025-09-24 | Outpatient (CLI) | payer OTHER | LOC: M RAD 09:53 | PROVIDERS: ATTEND Physician Assistant | DX: Z87.891 Personal history of nicotine dependence (principal) ==